=== PATIENT | female | born 2000 | race Caucasian/White ===

== ENCOUNTER 2022-06-03 15:20 | Outpatient (REF) | payer OTHER, SELFPAY ==
[2022-06-03 15:45] LABS: MANUAL DIFF FLAG NO
[2022-06-03 16:15] LABS: Basophils Absolute Auto 0.1 X10*3/uL (0.0-0.2); Basophils Percent Auto 0.8 % (0-2); Eosinophils Absolute Auto 0.3 X10*3/uL (0.0-0.4); Eosinophils Percent Auto 3.4 % (0-4); Hematocrit 38.5 % (37.0-47.0); Hemoglobin 13.8 g/dl (12.0-16.0); Imm Gran Abs Auto 0.02 X10*3/uL (0.00-0.03); Imm Gran Pct Auto 0.2 % (0.0-0.4); Lymphocytes Percent Auto 22.7 % (20-40); Mean Corpuscular HGB Conc 35.8 g/dl (31.0-35.0); Mean Corpuscular Hemoglobin 29.9 pg (27.0-33.0); Mean Corpuscular Volume 83.3 fL (80.0-98.0); Mean Platelet Volume 9.4 fL (9.4-12.3); Monocytes Percent Auto 11.6 % (2-11); Neutrophils Absolute Auto 5.3 x10*3/uL (2.0-8.3); Neutrophils Percent Auto 61.3 % (45-73); Platelet Count 390 X10*3/uL (160-400); Red Blood Count 4.62 X10*6/uL (4.20-5.50); Red Cell Distribution Width 12.2 % (11.0-16.0); White Blood Count 8.6 X10*3/uL (4.8-10.8)
[2022-06-03 16:53] LABS: Alanine Aminotransferase 19 U/L (0-31); Albumin Level 4.5 g/dL (3.5-5.0); Alkaline Phosphatase 74 U/L (39-117); Anion Gap 16 (12-20); Aspartate Amino Transferase 23 U/L (5-31); Bilirubin Total 0.5 mg/dL (0.0-1.0); Blood Urea Nitrogen 11 mg/dL (9-16); Calcium 9.5 mg/dL (8.4-10.2); Carbon Dioxide 24 mmol/L (22-29); Chloride 105 mmol/L (96-108); Estimated Glomerular Filt Rate > 60; Glucose Random 84 mg/dL (60-115); Potassium 4.6 mmol/L (3.3-5.1); Sodium 140 mmol/L (135-145); Total Protein 7.6 g/dL (6.5-8.0)
[2022-06-03 17:06] LABS: TSH reflex Free T4 1.29 uIU/mL (0.32-4.0); Vitamin D 25-OH Total 20.2 ng/mL (>30)
[2022-06-03 17:16] LABS: Folate 11.7 ng/mL (> or = 4.0); Vitamin B12 1049 pg/mL (200-900)
== END 2022-06-03 15:21 | disposition home or self-care (01) ==
LOC: HO.LAB 15:20
PROVIDERS: PCP Nurse Practitioner Family; Visit Provider Nurse Practitioner Family
DX: Z00.00 Encounter for general adult medical examination without abnormal findings (principal)
CPT/HCPCS: 36415; 80053; 82306; 82607; 82746; 84443; 85025

== ENCOUNTER 2022-07-17 15:54 | Outpatient (REF) | payer OTHER, SELFPAY ==
--- NOTE | 2022-07-17 17:46 | PFT_ITS ---
Forced vital capacity 66%, FEV1 47%, FEV1/FVC ratio is 60. [id number] is 18 and MVV 58%. Post bronchodilator therapy, there is a significant improvement in all the flow volumes. Total lung capacity 78%. Residual volume is 98%. Diffusion capacity 74%. CONCLUSION: 1. Mild restrictive pulmonary disorder. 2. Severe obstructive airway disorder with very significant response to bronchodilator therapy. These findings are suggestive of asthma/COPD overlap syndrome. Clinical correlation is recommended. MD DERICK Delaney/MODL / [id number]
== END 2022-07-17 15:55 | disposition home or self-care (01) ==
LOC: HO.RESP 15:54
PROVIDERS: PCP Nurse Practitioner Family; Visit Provider Nurse Practitioner Family
DX: J45.909 Unspecified asthma, uncomplicated (principal)
CPT/HCPCS: 94060; 94727; 94729

== ENCOUNTER → 2022-12-30 14:51 | Outpatient (REF) | payer OTHER, SELFPAY | LOC: HO.SL 14:51 | PROVIDERS: PCP Nurse Practitioner Family; Visit Provider Nurse Practitioner Family | DX: R06.83 Snoring (principal) | CPT/HCPCS: 95806 ==

== ENCOUNTER 2023-02-23 15:05 | Outpatient (REF) | payer OTHER, SELFPAY ==
[2023-02-23 16:02] LABS: MANUAL DIFF FLAG NO
[2023-02-23 17:56] LABS: Basophils Percent Auto 0.5 % (0-2); Eosinophils Absolute Auto 0.2 X10*3/uL (0.0-0.4); Hemoglobin 13.4 g/dl (12.0-16.0); Imm Gran Abs Auto 0.03 X10*3/uL (0.00-0.03); Imm Gran Pct Auto 0.4 % (0.0-0.4); Lymphocytes Absolute Auto 1.9 X10*3/uL (1.2-4.9); Lymphocytes Percent Auto 23.9 % (20-40); Mean Corpuscular HGB Conc 33.5 g/dl (31.0-35.0); Mean Corpuscular Hemoglobin 27.9 pg (27.0-33.0); Mean Corpuscular Volume 83.2 fL (80.0-98.0); Mean Platelet Volume 9.6 fL (9.4-12.3); Monocytes Absolute Auto 0.8 X10*3/uL (0.1-1.2); Monocytes Percent Auto 10.2 % (2-11); Platelet Count 403 X10*3/uL (160-400); Red Blood Count 4.81 X10*6/uL (4.20-5.50); Red Cell Distribution Width 11.9 % (11.0-16.0); White Blood Count 8.1 X10*3/uL (4.8-10.8)
[2023-02-26 12:03] LABS: Immunoglobulin E 129 kU/L (<OR=114)
== END 2023-02-23 15:06 | disposition home or self-care (01) ==
LOC: HO.LAB 15:05
PROVIDERS: PCP Nurse Practitioner Family; Visit Provider Hospitalist
DX: G47.33 Obstructive sleep apnea (adult) (pediatric) (principal); G47.34 Idiopathic sleep related nonobstructive alveolar hypoventilation; J45.909 Unspecified asthma, uncomplicated
CPT/HCPCS: 36415; 82785; 85025; 86003; 99202

== ENCOUNTER 2023-02-23 15:05 | Outpatient (AMB) | payer OTHER, SELFPAY ==
[2023-02-23 15:16] VITALS: BP 102/70; PULSE 86; O2SAT 98; BMI 35.2
--- NOTE | 2023-02-23 15:16 | MHC.OFFVIS ---
Intake Vital Signs 02/23/23 15:16 Height 5 ft 10 in Weight 245 lb BMI 35.2 BP 102/70 Blood Pressure Location Lt brachial Position Standing Pulse 86 Pulse Source Pulse Oximeter Pulse Oximetry (%) 98 Oxygen Delivery Method Room Air Intake Visit Reasons: asthma Intake Note: pt is here for asthma and general breathing issues. She also stated she had a home sleep study, which she states pcp not really believes the results, she had covid x2, started 2020 woke up unable to breath, 2021, and flu 2021. and than covid 09/2022. 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 The patient is a 22 year woman with a known history of asthma and allergic rhinitis who has been having worsening respiratory symptoms after having COVID. She is having to use her maintenance inhaler which is Advair HFA twice a day in addition to that does take her rescue inhaler between 2 to 4 times a day. The patient complains of chest tightness and wheezing. Moderate severity. She did undergo pulmonary function studies sometime in July 2022 which demonstrated a moderate fixed obstruction suggesting uncontrolled asthma. The patient also had a decrease in her total lung capacity. Clinically the patient is feeling better from that time. Although she is still not at her baseline. She also states that she has had allergy testing back many years ago and she was allergic to everything. Will go ahead and recheck her allergies at this time. In addition to this the patient continues to have significant daytime drowsiness. There is family history of sleep apnea. She does have documented apneic episodes and snoring. Her [place] score is elevated 12/24. The patient did undergo home sleep study. Will demonstrated that she was tachycardic up to 140 beats per minute and also she was hypoxic below 88% for about 14 minutes. The patient however had a hard time with this study and could not get herself to sleep and therefore her apnea score she just mild. Therefore, the patient does have evidence of significant sleep apnea and significant nocturnal hypoxia. I will request an in-lab study in order to accurately measure her sleep apnea in order for her to start PAP therapy. [facility] Medical History (Updated 02/23/23 @ 15:46 by Efra Eddy MD) Chronic allergic rhinitis Exercise-induced asthma Nocturnal hypoxia BRUNO (obstructive sleep apnea) Surgical History No pertinent past surgical history Family History Mother Splenic artery aneurysm Father No problems noted. 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 Cognitive needs: No Hearing needs: No Vision needs: No Review of Systems Const Reports daytime sleepiness, Reports difficulty sleeping, Denies fever(s), Reports snoring and Reports stops breathing during sleep Eyes Denies change in vision ENT Reports nasal congestion and Reports nasal discharge Card Denies chest pain and Reports dyspnea on exertion Resp Reports cough, Reports dyspnea on exertion, Reports snoring and Reports wheezing GI Reports no additional complaints Musc Denies myalgias Skin/Breast Denies rash Endo Denies flushing Jr/Lymph Denies lymphadenopathy Aller/Immun Reports wheezing Physical Exam Vital Signs: Last Vital Signs Pulse 86 02/23/23 15:16 BP 102/70 02/23/23 15:16 Pulse Ox 98 02/23/23 15:16 Oxygen Delivery Method Room Air 02/23/23 15:16 BMI result Body Mass Index 35.2 Const General: comfortable HEENT Head: Yes atraumatic Eyes General: appearance normal, both eyes and all related structures Neck Neck: Yes supple Chest Chest palpation & inspection: normal inspection of the chest Resp Effort & Inspection: normal respiratory effort Auscultation: no wheezes and diminished lung sounds Cardio Rate: regular rate Rhythm: regular rhythm Heart sounds: S1 normal heart sound present and S2 normal heart sound present GI Palpation (GI): Soft to palpation Skin General skin exam: no rashes or lesions noted Extrem General: Yes no clubbing, cyanosis or edema Assessment & Plan Assessment & Plan (1) BRUNO (obstructive sleep apnea): Code(s): G47.33 - Obstructive sleep apnea (adult) (pediatric) (2) Nocturnal hypoxia: Code(s): G47.34 - Idiopathic sleep related nonobstructive alveolar hypoventilation (3) Chronic allergic rhinitis: Code(s): J30.9 - Allergic rhinitis, unspecified (4) Asthma: Code(s): J45.909 - Unspecified asthma, uncomplicated Plan continue Advair HFA JEFF as needed Add Spiriva daily in lab PSG ECHO Bloodwork/Allergy testing Orders: Orders RT PSG in-lab sleep study 02/23/23 G47.33 - Obstructive sleep apnea (adult) (pediatric), G47.34 - Idiopathic sleep related nonobstructive alveolar hypoventilation CA echo transthoracic complete 02/23/23 I27.20 - Pulmonary hypertension, unspecified Rast Allergen 02/23/23 J30.9 - Allergic rhinitis, unspecified Complete Blood Count Auto Diff 02/23/23 J30.9 - Allergic rhinitis, unspecified Immunoglobulin E 02/23/23 J30.9 - Allergic rhinitis, unspecified Medications: New tiotropium bromide 2.5 mcg/actuation (Spiriva Respimat) 2 puffs inhalation DAILY 30 days 1 ea 11RF Coding Level of Care Code New Pt Level 4 (06861) Diagnoses BRUNO (obstructive sleep apnea) G47.33 Nocturnal hypoxia G47.34 Chronic allergic rhinitis J30.9 Asthma J45.909 Time Spent (min) 39
== END 2023-02-23 15:46 | disposition home or self-care (01) ==
PROVIDERS: PCP Nurse Practitioner Family; Visit Provider Hospitalist
DX: G47.33 Obstructive sleep apnea (adult) (pediatric) (principal); G47.34 Idiopathic sleep related nonobstructive alveolar hypoventilation; J45.909 Unspecified asthma, uncomplicated
CPT/HCPCS: 99204

== ENCOUNTER → 2023-03-20 19:30 | Outpatient (REF) | payer OTHER, SELFPAY | LOC: HO.SL 19:30 | PROVIDERS: PCP Nurse Practitioner Family; Visit Provider Hospitalist | DX: G47.33 Obstructive sleep apnea (adult) (pediatric) (principal); G47.34 Idiopathic sleep related nonobstructive alveolar hypoventilation | CPT/HCPCS: 95810 ==

== ENCOUNTER → 2023-03-20 22:21 | Outpatient (BNV) | payer OTHER, SELFPAY | PROVIDERS: PCP Nurse Practitioner Family; Visit Provider Internal Medicine | DX: G47.33 Obstructive sleep apnea (adult) (pediatric) (principal) | CPT/HCPCS: 95810 ==

== ENCOUNTER → 2023-03-26 13:51 | Outpatient (REF) | payer OTHER, SELFPAY ==
--- NOTE | 2023-03-26 13:54 | CA_ITS ---
Transthoracic Echocardiogram Patient (Last, First, Middle): Jaimie Modi, Gender: Female Date of : 2000 Age: 22 Procedure Date: 03/26/2023 Procedure Type: Transthoracic Echocardiogram Location: OP Height: 177.8 cm Weight: 113.4 kg BSA: 2.29 m2 Heart Rate: 75 bpm BP: 100 / 80 mmHg Processor Helper: GAY Referring MD: Efra Eddy MD Research Development Manager: Gallo Christopher MD Symptoms: I27.20 - Pulmonary hypertension, unspecified Study Quality: Fair ECG Rhythm: Sinus Conclusions: - Essentially normal study Findings Left Ventricle Normal left ventricular size, thickness, and systolic function. The visually estimated ejection fraction is between 55-60%. Spectral Doppler is indicative of a normal filling pattern. Peak GLS is -20%, within normal limits. Right Ventricle Normal right ventricular cavity size and systolic function. Atria Both atria are normal in size. There is no evidence of interatrial shunt. Aortic Valve Normal aortic valve structure and function. There is no aortic valve stenosis. There is no aortic valve regurgitation. Mitral Valve Normal mitral valve structure and function. There is trace mitral valve regurgitation. There is no mitral valve stenosis. Pulmonic Valve The pulmonic valve is likely normal. There is trace pulmonic valve regurgitation. Tricuspid Valve Normal tricuspid valve structure. Tricuspid regurgitation envelope is inadequate for calculation of right ventricular systolic pressure. Normal right atrial pressure. Great Vessels All visible segments of the aorta are normal in size. The pulmonary artery was not well visualized. Venous The inferior vena cava is normal in size and collapses greater than 50% with inspiration. Pericardium/Pleural There is no evidence of pericardial effusion. Prior Study Comparison No prior study available for comparison. Measurements 2D Linear Measurements IVSd: 0.78 0.6-0.9/0.6-1.0 cm LVIDd: 4.84 3.9-5.3/4.2-5.9 cm LVIDd Index: 2.11 2.4-3.2/2.2-3.1 cm/m2 LVIDs: 3.07 2.0-3.6 cm LVPWd: 0.92 0.7-1.1 cm LA Diam: 3.40 2.7-3.8/3.0-4.0 cm LAIDs Index: 1.48 1.5-2.3 cm/m2 LV Mass: 173.13 67-162/88-224 g LV Mass Index: 75.60 43-95/49-115 g/m2 LVOT Diam: 2.20 3.0+(-)1.3 cm 2D Systolic Function EF 4C: 52.70 >55% EF 2C: 63.80 >55% EF BiP: 59.20 >55% Mitral Valve MV Pk E: 0.69 MV PK A: 0.59 MV Decel Time: 134.00 E/A: 1.20 E'Lateral: 15.40 E'Medial: 8.16 E/E' Med: 8.50 E/E' Lat: 4.50 PHT: 39.00 MVA PHT: 5.64 Decel [place]: 5.19 Aortic Valve AoV Pk Ayad: 1.01 AoV Mn Ayad: 0.73 AoV VTI: 0.21 AoV Pk Grad: 4.00 Aov Mn Grad: 2.00 LANA Cont.VTI: 3.51 LVOT LVOT Pk Ayad: 0.95 LVOT Mn Ayad: 0.65 LVOT VTI: 0.19 LVOT Pk Grad: 4.00 LVOT Mn Grad: 2.00 LVOT Diam: 2.20 LVOT Area: 3.80 Diastolic Function MV Pk E: 0.69 MV Pk A: 0.59 E/A: 1.20 E'Medial: 8.16 E/E' Med: 8.50 E' Laterial: 15.40 E/E' Lat: 4.50 Right Ventricle TAPSE (mm): 21.20 TVS' Ayad: 12.20 Tricuspid Valve RA Press: 3.00 Great Vessels Aorta Sinus of Valsalva: 3.30 2.0-3.5 cm Ao Asc: 3.00 2.1-3.4 cm Pulmonary Valve PV Pk Ayad: 0.80 Peak PV Grad: 3.00 Updated in Other Vendor System with Status of Final Gallo Christopher MD electronically signed on 03/26/2023 3:41:37 PM with status of Final
== END ==
LOC: HO.CARD 13:51
PROVIDERS: PCP Nurse Practitioner Family; Visit Provider Hospitalist
DX: I27.20 Pulmonary hypertension, unspecified (principal)
CPT/HCPCS: 93306; 93356

== ENCOUNTER → 2023-03-26 13:54 | Outpatient (BNV) | payer OTHER, SELFPAY | PROVIDERS: PCP Nurse Practitioner Family; Visit Provider Internal Medicine Cardiovascular Disease | DX: I27.20 Pulmonary hypertension, unspecified (principal) | CPT/HCPCS: 93306 ==

== ENCOUNTER 2023-05-12 15:43 | Outpatient (AMB) | payer OTHER, SELFPAY ==
[2023-05-12 15:55] VITALS: PULSE 86; O2SAT 98; BMI 35.1
--- NOTE | 2023-05-12 15:55 | A.OFFVIS_ITS ---
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 She is having to use her maintenance inhaler which is Advair HFA twice a day in addition to that does take her rescue inhaler between 2 to 4 times a day. The patient complains of chest tightness and wheezing. Moderate severity. She did undergo pulmonary function studies sometime in July 2022 which demonstrated a moderate fixed obstruction suggesting uncontrolled asthma. The patient also had a decrease in her total lung capacity. Clinically the patient is feeling better from that time. Although she is still not at her baseline. She also states that she has had allergy testing back many years ago and she was allergic to everything. Will go ahead and recheck her allergies at this time. In addition to this the patient continues to have significant daytime drowsiness. There is family history of sleep apnea. She does have documented apneic episodes and snoring. Her [place] score is elevated 12/24. The patient did undergo home sleep study. Will demonstrated that she was tachycardic up to 140 beats per minute and also she was hypoxic below 88% for about 14 minutes. The patient however had a hard time with this study and could not get herself to sleep and therefore her apnea score she just mild. Therefore, the patient does have evidence of significant sleep apnea and significant nocturnal hypoxia. I will request an in-lab study in order to accurately measure her sleep apnea in order for her to start PAP therapy. 05/12/2023 the patient is here for a pulmonary follow-up visit. She continues to have daytime drowsiness. Her [place] score is still elevated to over 24. we did review her in-lab sleep study. The patient does have [id number] sleep apnea. the patient really benefit from starting CPAP therapy. The patient is agreeable to this. Will go ahead and send a prescription to the local [employer] company. We did review her echocardiogram. No evidence of any pulmonary hypertension. This is reassuring. Still, will be very important for start CPAP therapy to minimize the risk of the development of pulmonary hypertension in the future. The patient also doing better on the Spiriva. Her asthma seems to be better controlled on this regimen. The patient did have allergy testing. Her IgE was elevated and she has severe allergies to cats birch trees oak trees and also has some allergies to dust mites. We did talk about considering allergy shots. Otherwise if her symptoms worsen a maximum respiratory therapy she can also consider biologics such as Xolair. Will have her start CPAP and have her follow-up in the next 2-3 months. [facility] Medical History (Updated 05/12/23 @ 16:00 by Efra Eddy MD) Chronic allergic rhinitis Nocturnal hypoxia BRUNO (obstructive sleep apnea) Exercise-induced asthma Surgical History No pertinent past surgical history Family History Mother Splenic artery aneurysm Father No problems noted. 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 Cognitive needs: No Hearing needs: No Vision needs: No Review of Systems Const Reports daytime sleepiness, Reports difficulty sleeping, Denies fever(s), Reports snoring and Reports stops breathing during sleep Eyes Denies change in vision ENT Reports nasal congestion and Reports nasal discharge Card Denies chest pain and Reports dyspnea on exertion Resp Reports cough, Reports dyspnea on exertion, Reports snoring and Denies wheezing GI Reports no additional complaints Musc Denies myalgias Skin/Breast Denies rash Endo Denies flushing Jr/Lymph Denies lymphadenopathy Aller/Immun Denies wheezing Physical Exam Vital Signs: Last Vital Signs Pulse 86 05/12/23 15:55 Pulse Ox 98 05/12/23 15:55 Oxygen Delivery Method Room Air 05/12/23 15:55 BMI result Body Mass Index 35.1 Const General: comfortable HEENT Head: Yes atraumatic Eyes General: appearance normal, both eyes and all related structures Neck Neck: Yes supple Chest Chest palpation & inspection: normal inspection of the chest Resp Effort & Inspection: normal respiratory effort Auscultation: no wheezes and diminished lung sounds Cardio Rate: regular rate Rhythm: regular rhythm Heart sounds: S1 normal heart sound present and S2 normal heart sound present GI Palpation (GI): Soft to palpation Skin General skin exam: no rashes or lesions noted Extrem General: Yes no clubbing, cyanosis or edema Assessment & Plan Assessment & Plan (1) BRUNO (obstructive sleep apnea): Code(s): G47.33 - Obstructive sleep apnea (adult) (pediatric) (2) Nocturnal hypoxia: Code(s): G47.34 - Idiopathic sleep related nonobstructive alveolar hypoventilation (3) Chronic allergic rhinitis: Code(s): J30.9 - Allergic rhinitis, unspecified (4) Asthma: Code(s): J45.909 - Unspecified asthma, uncomplicated Qualifiers: Asthma complication type: uncomplicated Asthma persistence: persistent Asthma severity: moderate Qualified Code(s): J45.40 - Moderate persistent asthma, uncomplicated Plan continue Advair HFA JEFF as needed continue Spiriva daily start APAP consider Xolair if symptoms worsen consider allergy shots F/U 3 months Coding Level of Care Code Est Pt Level 4 (94189) Diagnoses BRUNO (obstructive sleep apnea) G47.33 Nocturnal hypoxia G47.34 Chronic allergic rhinitis J30.9 Moderate persistent asthma without complication J45.40 Asthma complication type: uncomplicated Asthma persistence: persistent Asthma severity: moderate Time Spent (min) 18
== END 2023-05-12 16:13 | disposition home or self-care (01) ==
PROVIDERS: PCP Nurse Practitioner Family; Visit Provider Hospitalist
DX: G47.33 Obstructive sleep apnea (adult) (pediatric) (principal); G47.34 Idiopathic sleep related nonobstructive alveolar hypoventilation; J30.9 Allergic rhinitis, unspecified; J45.40 Moderate persistent asthma, uncomplicated
CPT/HCPCS: 99214

== ENCOUNTER → 2023-05-12 15:43 | Outpatient (BNVA) | payer OTHER, SELFPAY | PROVIDERS: PCP Nurse Practitioner Family; Visit Provider Hospitalist | DX: G47.34 Idiopathic sleep related nonobstructive alveolar hypoventilation (principal); G47.33 Obstructive sleep apnea (adult) (pediatric); J45.40 Moderate persistent asthma, uncomplicated; J30.9 Allergic rhinitis, unspecified; Z79.899 Other long term (current) drug therapy | CPT/HCPCS: 99212 ==

== ENCOUNTER 2023-06-05 13:50 | Outpatient (AMB) | payer OTHER, SELFPAY ==
[2023-06-05 13:53] VITALS: BP 112/80; PULSE 78; O2SAT 99; BMI 34.3
--- NOTE | 2023-06-05 13:53 | A.OFFPC_ITS ---
Vital Signs 06/05/23 13:53 Height 5 ft 10 in Weight 239 lb BMI 34.3 BP 112/80 Blood Pressure Location Lt brachial Position Sitting Pulse 78 Pulse Source Pulse Oximeter Pulse Oximetry (%) 99 Oxygen Delivery Method Room Air Intake Visit Reasons: Annual Exam Intake Note: Patient is here today for a physical. 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 Allergies No Known Allergies Allergy (Verified 06/05/23 14:11) Medication List - Last Reconciled 06/05/23 by [place] [facility] albuterol sulfate 90 mcg/actuation (Ventolin HFA) 2 puffs inhalation Q4-6H PRN albuterol sulfate 2.5 mg (3 mL) inhalation Q4-6H PRN cetirizine (Zyrtec) 10 mg PO DAILY PRN cholecalciferol (vitamin D3) 25 mcg PO DAILY fluoxetine 40 mg PO DAILY fluticasone propion-salmeterol 115-21 mcg/actuation (Advair HFA) 2 puffs inhalation Q12H miscellaneous medical supply 1 ea miscellaneous DAILY montelukast 10 mg PO BEDTIME tiotropium bromide 2.5 mcg/actuation (Spiriva Respimat) 2 puffs inhalation DAILY 30 days Tobacco use date assessed: 06/05/23 Dental Screening Dental Screen Date: 06/05/23 Did you have a dental visit in the last 12 months?: Yes Did you have a dental problem in the last 6 months where you did not have access to dental care?: No Was dental information given to patient?: Patient has dentist HPI Annual Exam HPI Details Patient is a 22-year-old female who presents today for physical exam. Medical history significant for seasonal allergies, asthma-followed by [facility], depression, obesity, low vitamin-D level, anxiety, BRUNO-on CPAP- reports possibly has to much pressure from CPAP machine-will follow-up with pulmonology in regards to this. Patient has an upcoming appointment with [facility] for woman's exam and Pap smear 08/2023. Tetanus vaccine up-to-date. Dental exam up-to-date. Does not see eye doctor, no issues with eyes. No shortness of breath or chest pain. [facility] Medical History COVID-19 Chronic allergic rhinitis Nocturnal hypoxia BRUNO (obstructive sleep apnea) Exercise-induced asthma Surgical History No pertinent past surgical history Family History Mother Splenic artery aneurysm Father No problems noted. 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 Cognitive needs: No Hearing needs: No Vision needs: No Questionnaire PHQ-9 Over the last 2 weeks, how often have you been bothered by any of the following problems? 1. Little interest or pleasure in doing things: not at all 2. Feeling down, depressed, or hopeless: not at all 3. Trouble falling or staying asleep, or sleeping too much: not at all 4. Feeling tired or having little energy: not at all 5. Poor appetite or overeating: not at all 6. Feeling bad about yourself - or that you are a failure or have let yourself or your family down: not at all 7. Trouble concentrating on things, such as reading the newspaper or watching television: not at all 8. Moving or speaking so slowly that other people could have noticed. Or the opposite - being so fidgety or restless that you have been moving around a lot more than usual: not at all 9. Thoughts that you would be better off or of hurting yourself in some way: not at all Total score: 0 Depression Screening Interpretation: Negative Depression Screening Done: Yes 81232 - PHQ-9 Billing: Yes Source: Developed by Drs. Bernardo Charles, Yadi Sotelo, Chuck Vasquez and colleagues, with an educational brian from [employer]. Thrive Questionnaire Date Thrive assessed: 09/05/22 I am a: Patient What is your living situation today?: I have a steady place to live Within the past 12 months, did the food you bought not last and you didn't have the money to get more?: Never true Within the past 12 months, did you worry whether your food would run out before you got money to buy more?: Never true Do you have trouble paying for medicines?: No Do you have trouble getting transportation to medical appointments?: No Do you have trouble paying your heating and electricity bill?: No Do you have trouble taking care of your child, family member or friend?: No Do you have trouble with day-to-day activities such as bathing, preparing meals, shopping, managing finances, etc.?: No Are you currently unemployed and looking for a job?: No Are you interested in more education?: No Currently or been in a relationship where the following occur: no concerns reported AUDIT C Alcohol Use Questionnaire (AUDIT-C) 1. How often do you have a drink containing alcohol?: Never 2. How many drinks containing alcohol do you have on a typical day when you are drinking?: 1 or 2 (0) 3. How often do you have six or more drinks on one occasion?: Never Total Score: 0 Score Reviewed/Action Taken: No PAUILNO-7 AMB Questionnaire PAULINO-7 Date PAULINO - 7 assessed: 06/05/23 Feeling nervous, anxious, or on edge: 0 = Not at all Not being able to stop or control worryin = Not at all Worrying too much about different things: 0 = Not at all Trouble relaxin = Not at all Being so restless that it is hard to sit still: 0 = Not at all Becoming easily annoyed or irritable: 0 = Not at all Feeling afraid as if something awful might happen: 0 = Not at all Total PAULINO-7 score (0-4 normal; 5-9 mild; 10-14 moderate; 15-21 severe): 0 Source: Developed by Drs. Bernardo Charles, Yadi Sotelo, Chuck Vasquez and colleagues, with an educational brian from [employer]. PAULINO-7 Assessment Billing PAULINO-7 Assessment Tool: PAULINO-7 Assessment 98246 Review of Systems Const Denies body aches, Denies chills, Denies fever(s) and Denies headache(s) Eyes Denies change in vision ENT Denies dizziness, Denies otalgia, Denies headache(s), Denies sinus pain and Denies sore throat Card Denies chest pain, Denies lightheadedness and Denies dyspnea Resp Denies dyspnea and Denies wheezing GI Denies abdominal pain, Denies constipation, Denies diarrhea, Denies nausea and Denies vomiting Denies dysuria Musc Denies myalgias Skin/Breast Denies rash Neuro Denies dizziness and Denies headache(s) Aller/Immun Denies wheezing Physical exam (Primary Care) Vital Signs: Last Vital Signs Pulse 78 06/05/23 13:53 BP 112/80 06/05/23 13:53 Pulse Ox 99 06/05/23 13:53 Oxygen Delivery Method Room Air 06/05/23 13:53 BMI result Body Mass Index 34.3 Tobacco/Smoking Status: Tobacco use Status Tobacco use date assessed 06/05/23 06/05/23 14:05 Patient Tobacco Use Status Never used Tobacco 06/05/23 14:05 PHQ-9: PHQ-9 Score PHQ-9: Total score 0 06/05/23 14:05 Depression Screening Interpretation: Negative Thrive Assessment: Date of Thrive Assessment Date Thrive assessed 09/05/22 06/05/23 14:05 Currently or been in a relationship where the following occur: no concerns reported Const General: cooperative and no acute distress Orientation/consciousness: patient oriented x3 HENMT Head: Yes normocephalic and Yes atraumatic Ears: TM's normal bilaterally Face and sinus: Yes sinuses nontender Mouth: oropharynx normal and moist mucous membranes Throat: Yes posterior oropharynx normal Eyes General: appearance normal, both eyes and all related structures Pupils: Equal, round and reactive pupils present EOM: EOMs intact bilaterally Neck Neck: Yes normal visual inspection, Yes full ROM and Yes no lymphadenopathy Thyroid: Thyroid normal Resp Effort & Inspection: normal respiratory effort and able to speak in complete sentences Auscultation: clear to auscultation bilaterally, no crackles, no rales, no rhonchi and no wheezes Cardio Rate: regular rate Rhythm: regular rhythm Heart sounds: S1 normal heart sound present, S2 normal heart sound present and no murmurs GI Palpation (GI): Soft to palpation, not firm, nontender, no guarding, not rigid and no hepatosplenomegaly Auscultation: normal bowel sounds General: No CVA tenderness Back/Spine/Pelvis Back: No CVA tenderness Skin General skin exam: no rashes or lesions noted Neuro General: patient oriented x3 Cranial nerves: Yes Equal, round and reactive pupils present Gait exam (Neuro): Normal gait present Extrem General: Yes full ROM and No edema Assessment and Plan Assessment & Plan (1) Asthma: Code(s): J45.909 - Unspecified asthma, uncomplicated Qualifiers: Asthma severity: moderate Asthma persistence: persistent Asthma complication type: uncomplicated Qualified Code(s): J45.40 - Moderate per sistent asthma, uncomplicated Plan: Continue current treatment Continue to follow-up with [facility] (2) Seasonal allergies: Code(s): J30.2 - Other seasonal allergic rhinitis Plan: Continue Zyrtec 10 mg daily p.r.n. and montelukast (3) Anxiety: Code(s): F41.9 - Anxiety disorder, unspecified Plan: Continue fluoxetine (4) Obesity (BMI 30.0-34.9): Code(s): E66.9 - Obesity, unspecified Plan: Healthy food choices and exercise as tolerated (5) Depression: Code(s): F32.A - Depression, unspecified Qualifiers: Depression Type: other depression Qualified Code(s): F32.89 - Other specified depressive episodes Plan: Continue fluoxetine 40 mg daily (6) BRUNO (obstructive sleep apnea): Code(s): G47.33 - Obstructive sleep apnea (adult) (pediatric) Plan: On CPAP Continue to follow-up with [facility] (7) Low vitamin D level: Code(s): R79.89 - Other specified abnormal findings of blood chemistry Plan: Will check vitamin-D level (8) Adult general medical exam: Comment: Covid-19 IZ's Pfizer x 3. Tdap UTD. Code(s): Z00.00 - Encounter for general adult medical examination without abnormal findings Plan: Repeat in 1 year Blood work ordered Orders: Orders Vitamin B12 and Folate Today Z00.00 - Encounter for general adult medical examination without abnormal findings Comprehensive Met. Panel Today Z00.00 - Encounter for general adult medical examination without abnormal findings Vitamin D 25-OH Total Today R79.89 - Other specified abnormal findings of blood chemistry TSH reflex Free T4 Today Z00.00 - Encounter for general adult medical examination without abnormal findings Medications: Refilled fluoxetine 40 mg PO DAILY 30 caps 2RF F32.A - Depression, unspecified Coding Level of Care Code Est Pt Prev Care 18-39y(61626) Diagnoses Moderate persistent asthma without complication J45.40 Asthma severity: moderate Asthma persistence: persistent Asthma complication type: uncomplicated Seasonal allergies J30.2 Anxiety F41.9 Obesity (BMI 30.0-34.9) E66.9 Other depression F32.89 Depression Type: other depression BRUNO (obstructive sleep apnea) G47.33 Low vitamin D level R79.89 Adult general medical exam Z00.00 Additional Codes PAULINO-7 Assessment Billing - PAULINO-7 Assessment Tool: PAULINO-7 Assessment [id number] ([id number])
== END 2023-06-05 14:24 | disposition home or self-care (01) ==
PROVIDERS: Visit Provider Nurse Practitioner Family
DX: Z00.00 Encounter for general adult medical examination without abnormal findings (principal); J45.40 Moderate persistent asthma, uncomplicated; G47.33 Obstructive sleep apnea (adult) (pediatric); E55.9 Vitamin D deficiency, unspecified
CPT/HCPCS: 99395

== ENCOUNTER 2023-06-05 14:28 | Outpatient (REF) | payer OTHER, SELFPAY ==
[2023-06-05 16:18] LABS: Alanine Aminotransferase 12 U/L (0-31); Albumin Level 4.4 g/dL (3.5-5.0); Alkaline Phosphatase 65 U/L (39-117); Anion Gap 12 (12-20); Aspartate Amino Transferase 19 U/L (5-31); Bilirubin Total 0.5 mg/dL (0.0-1.0); Blood Urea Nitrogen 11 mg/dL (9-16); Calcium 10.3 mg/dL (8.4-10.2); Carbon Dioxide 22 mmol/L (22-29); Chloride 107 mmol/L (96-108); Estimated Glomerular Filt Rate > 60; Glucose Random 90 mg/dL (60-115); Potassium 4.2 mmol/L (3.3-5.1); Sodium 137 mmol/L (135-145); Total Protein 7.8 g/dL (6.5-8.0)
[2023-06-05 16:28] LABS: TSH reflex Free T4 1.59 uIU/mL (0.32-4.0); Vitamin D 25-OH Total 43.9 ng/mL (>30)
[2023-06-05 16:34] LABS: Folate 14.5 ng/mL (> or = 4.0); Vitamin B12 620 pg/mL (200-900)
== END 2023-06-05 14:29 | disposition home or self-care (01) ==
LOC: HO.LAB 14:28
PROVIDERS: PCP Nurse Practitioner Family; Visit Provider Nurse Practitioner Family
DX: Z00.00 Encounter for general adult medical examination without abnormal findings (principal); R79.89 Other specified abnormal findings of blood chemistry
CPT/HCPCS: 36415; 80053; 82306; 82607; 82746; 84443

== ENCOUNTER 2023-07-21 15:16 | Outpatient (AMB) | payer OTHER, SELFPAY ==
[2023-07-21 15:31] VITALS: PULSE 88; O2SAT 98; BMI 33.7
--- NOTE | 2023-07-21 15:31 | A.OFFVIS_ITS ---
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 She is having to use her maintenance inhaler which is Advair HFA twice a day in addition to that does take her rescue inhaler between 2 to 4 times a day. The patient complains of chest tightness and wheezing. Moderate severity. She did undergo pulmonary function studies sometime in July 2022 which demonstrated a moderate fixed obstruction suggesting uncontrolled asthma. The patient also had a decrease in her total lung capacity. Clinically the patient is feeling better from that time. Although she is still not at her baseline. She also states that she has had allergy testing back many years ago and she was allergic to everything. Will go ahead and recheck her allergies at this time. In addition to this the patient continues to have significant daytime drowsiness. There is family history of sleep apnea. She does have documented apneic episodes and snoring. Her Ida score is elevated 08/02. The patient did undergo home sleep study. Will demonstrated that she was tachycardic up to 140 beats per minute and also she was hypoxic below 88% for about 14 minutes. The patient however had a hard time with this study and could not get herself to sleep and therefore her apnea score she just mild. Therefore, the patient does have evidence of significant sleep apnea and significant nocturnal hypoxia. I will request an in-lab study in order to accurately measure her sleep apnea in order for her to start PAP therapy. 05/12/2023 the patient is here for a pulmonary follow-up visit. She continues to have daytime drowsiness. Her Ida score is still elevated to over 24. we did review her in-lab sleep study. The patient does have [id number] sleep apnea. the patient really benefit from starting CPAP therapy. The patient is agreeable to this. Will go ahead and send a prescription to the local [facility] company. We did review her echocardiogram. No evidence of any pulmonary hypertension. This is reassuring. Still, will be very important for start CPAP therapy to minimize the risk of the development of pulmonary hypertension in the future. The patient also doing better on the Spiriva. Her asthma seems to be better controlled on this regimen. The patient did have allergy testing. Her IgE was elevated and she has severe allergies to cats birch trees oak trees and also has some allergies to dust mites. We did talk about considering allergy shots. Otherwise if her symptoms worsen a maximum respiratory therapy she can also consider biologics such as Xolair. Will have her start CPAP and have her follow-up in the next 2-3 months. 07/21/2023 the patient is here for a pul [facility] follow-up visit. The patient overall has been doing fair. She had RSV few weeks ago and she is still recovering from it. She is still having coughing spells from it and because of that difficult time tolerating the CPAP at nighttime. Prior to that she was doing great on CPAP. And also the cough can affect her daytime activities. She has her albuterol and also her nebulizer that she uses as needed. Although she also use her maintenance therapies. She has just been sickly. When she had RSV she also took some antibiotics and some prednisone. Now she is back to her baseline therapy. However now with the cough is hard for her to tolerate the higher pressures on her CPAP. I did decrease pressures down to 14 cm. It is still those are too high she can always call and we can always hopefully decrease the pressure is further down. She continue with current respiratory therapy. I prescribed Tessalon Perles to help with her cough at this time. Respiratory aches exam is fairly normal. [facility] Medical History COVID-19 Chronic allergic rhinitis Nocturnal hypoxia BRUNO (obstructive sleep apnea) Exercise-induced asthma Surgical History No pertinent past surgical history Family History Mother Splenic artery aneurysm Father No problems noted. 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 Cognitive needs: No Hearing needs: No Vision needs: No Review of Systems Const Denies daytime sleepiness, Reports difficulty sleeping, Denies fever(s) and Denies snoring Eyes Denies change in vision ENT Reports nasal congestion and Reports nasal discharge Card Denies chest pain and Reports dyspnea on exertion Resp Reports cough, Reports dyspnea on exertion, Denies snoring and Denies wheezing GI Reports no additional complaints Musc Denies myalgias Skin/Breast Denies rash Endo Denies flushing Jr/Lymph Denies lymphadenopathy Aller/Immun Denies wheezing Physical Exam Vital Signs: Last Vital Signs Pulse 88 07/21/23 15:31 Pulse Ox 98 07/21/23 15:31 Oxygen Delivery Method Room Air 07/21/23 15:31 BMI result Body Mass Index 33.7 Const General: comfortable HEENT Head: Yes atraumatic Eyes General: appearance normal, both eyes and all related structures Neck Neck: Yes supple Chest Chest palpation & inspection: normal inspection of the chest Resp Effort & Inspection: normal respiratory effort Auscultation: no wheezes and diminished lung sounds Cardio Rate: regular rate Rhythm: regular rhythm Heart sounds: S1 normal heart sound present and S2 normal heart sound present GI Palpation (GI): Soft to palpation Skin General skin exam: no rashes or lesions noted Extrem General: Yes no clubbing, cyanosis or edema Assessment & Plan Assessment & Plan (1) BRUNO (obstructive sleep apnea): Code(s): G47.33 - Obstructive sleep apnea (adult) (pediatric) (2) Nocturnal hypoxia: Code(s): G47.34 - Idiopathic sleep related nonobstructive alveolar hypoventilation (3) Chronic allergic rhinitis: Code(s): J30.9 - Allergic rhinitis, unspecified (4) Asthma: Code(s): J45.909 - Unspecified asthma, uncomplicated Qualifiers: Asthma complication type: uncomplicated Asthma persistence: persistent Asthma severity: moderate Qualified Code(s): J45.40 - Moderate persistent asthma, uncomplicated Plan continue Advair HFA JEFF as needed continue Spiriva daily continue APAP, decrease pressures 6-16 to 6-14 start Tessalon pearls as needed for cough consider Xolair if symptoms worsen consider allergy shots F/U 6 months Medications: New benzonatate 200 mg PO BID 30 days PRN 60 caps 0RF cough Coding Level of Care Code Est Pt Level 4 (28618) Diagnoses BRUNO (obstructive sleep apnea) G47.33 Nocturnal hypoxia G47.34 Chronic allergic rhinitis J30.9 Moderate persistent asthma without complication J45.40 Asthma complication type: uncomplicated Asthma persistence: persistent Asthma severity: moderate Time Spent (min) 18
== END 2023-07-21 16:04 | disposition home or self-care (01) ==
PROVIDERS: PCP Nurse Practitioner Family; Visit Provider Hospitalist
DX: G47.33 Obstructive sleep apnea (adult) (pediatric) (principal); G47.34 Idiopathic sleep related nonobstructive alveolar hypoventilation; J30.9 Allergic rhinitis, unspecified; J45.40 Moderate persistent asthma, uncomplicated
CPT/HCPCS: 99214

== ENCOUNTER → 2023-07-21 15:16 | Outpatient (BNVA) | payer OTHER, SELFPAY | PROVIDERS: PCP Nurse Practitioner Family; Visit Provider Hospitalist | DX: G47.34 Idiopathic sleep related nonobstructive alveolar hypoventilation (principal); G47.33 Obstructive sleep apnea (adult) (pediatric); I27.20 Pulmonary hypertension, unspecified ==

== ENCOUNTER 2024-01-19 15:39 | Outpatient (AMB) | payer OTHER, SELFPAY ==
[2024-01-19 15:48] VITALS: PULSE 89; O2SAT 98; BMI 33.5
--- NOTE | 2024-01-19 15:48 | A.OFFVIS_ITS ---
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 She is having to use her maintenance inhaler which is Advair HFA twice a day in addition to that does take her rescue inhaler between 2 to 4 times a day. The patient complains of chest tightness and wheezing. Moderate severity. She did undergo pulmonary function studies sometime in July 2022 which demonstrated a moderate fixed obstruction suggesting uncontrolled asthma. The patient also had a decrease in her total lung capacity. Clinically the patient is feeling better from that time. Although she is still not at her baseline. She also states that she has had allergy testing back many years ago and she was allergic to everything. Will go ahead and recheck her allergies at this time. In addition to this the patient continues to have significant daytime drowsiness. There is family history of sleep apnea. She does have documented apneic episodes and snoring. Her [place] score is elevated 12/24. The patient did undergo home sleep study. Will demonstrated that she was tachycardic up to 140 beats per minute and also she was hypoxic below 88% for about 14 minutes. The patient however had a hard time with this study and could not get herself to sleep and therefore her apnea score she just mild. Therefore, the patient does have evidence of significant sleep apnea and significant nocturnal hypoxia. I will request an in-lab study in order to accurately measure her sleep apnea in order for her to start PAP therapy. 05/12/2023 the patient is here for a pulmonary follow-up visit. She continues to have daytime drowsiness. Her [place] score is still elevated to over 24. we did review her in-lab sleep study. The patient does have [id number] sleep apnea. the patient really benefit from starting CPAP therapy. The patient is agreeable to this. Will go ahead and send a prescription to the local [employer] [facility]. We did review her echocardiogram. No evidence of any pulmonary hypertension. This is reassuring. Still, will be very important for start CPAP therapy to minimize the risk of the development of pulmonary hypertension in the future. The patient also doing better on the Spiriva. Her asthma seems to be better controlled on this regimen. The patient did have allergy testing. Her IgE was elevated and she has severe allergies to cats birch trees oak trees and also has some allergies to dust mites. We did talk about considering allergy shots. Otherwise if her symptoms worsen a maximum respiratory therapy she can also consider biologics such as Xolair. Will have her start CPAP and have her follow-up in the next 2-3 months. 07/21/2023 the patient is here for a pulmonary follow-up visit. The patient overall has been doing fair. She had RSV few weeks ago and she is still recovering from it. She is still having coughing spells from it and because of that difficult time tolerating the CPAP at nighttime. Prior to that she was doing great on CPAP. And also the cough can affect her daytime activities. She has her albuterol and also her nebulizer that she uses as needed. Although she also use her maintenance therapies. She has just been sickly. When she had RSV she also took some antibiotics and some prednisone. Now she is back to her baseline therapy. However now with the cough is hard for her to tolerate the higher pressures on her CPAP. I did decrease pressures down to 14 cm. It is still those are too high she can always call and we can always hopefully decrease the pressure is further down. She continue with current respiratory therapy. I prescribed Tessalon Perles to help with her cough at this time. Respiratory aches exam is fairly normal. 01/19/2024 the patient is here for a pulmonary follow-up visit. Overall she is doing okay. He does bothering her. DIC in her apartment complex is not working yet and this is causing her to have difficulties with her breathing. Because of that she has not been able to use CPAP. Therefore she has minimal use for the last few weeks. She did use it over the wintertime very good in the therapy has been very affecting beneficial. Once they fixed the AC in her apartment she will be able to start using the CPAP again. She likes her mask and she has been getting supplies regularly which is reassuring. We did download the data. Her AHI is down to 1.4 when she does use the machine. Therefore we will make any changes at this time. She will continue with current supplies. She will continue with current respiratory medicines. Although she has been having more allergies. We did talk about considering Xolair as an option. The patient is agreeable this time. Will go ahead and request Xolair for the patient at this time. [facility] Medical History COVID-19 Chronic allergic rhinitis Nocturnal hypoxia BRUNO (obstructive sleep apnea) Exercise-induced asthma Surgical History No pertinent past surgical history Family History Mother Splenic artery aneurysm Father No problems noted. 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 Cognitive needs: No Hearing needs: No Vision needs: No Review of Systems Const Denies daytime sleepiness, Reports difficulty sleeping, Denies fever(s) and Denies snoring Eyes Denies change in vision ENT Reports nasal congestion and Reports nasal discharge Card Denies chest pain Resp Reports cough, Denies snoring and Reports wheezing GI Reports no additional complaints Musc Denies myalgias Skin/Breast Denies rash Endo Denies flushing Jr/Lymph Denies lymphadenopathy Aller/Immun Reports wheezing Physical Exam Vital Signs: Last Vital Signs Pulse 89 01/19/24 15:48 Pulse Ox 98 01/19/24 15:48 Oxygen Delivery Method Room Air 01/19/24 15:48 BMI result Body Mass Index 33.5 Const General: comfortable HEENT Head: Yes atraumatic Eyes General: appearance normal, both eyes and all related structures Neck Neck: Yes supple Chest Chest palpation & inspection: normal inspection of the chest Resp Effort & Inspection: normal respiratory effort Auscultation: no wheezes and diminished lung sounds Cardio Rate: regular rate Rhythm: regular rhythm Heart sounds: S1 normal heart sound present and S2 normal heart sound present GI Palpation (GI): Soft to palpation Skin General skin exam: no rashes or lesions noted Extrem General: Yes no clubbing, cyanosis or edema Assessment & Plan Assessment & Plan (1) BRUNO (obstructive sleep apnea): Code(s): G47.33 - Obstructive sleep apnea (adult) (pediatric) Category: Medical (2) Nocturnal hypoxia: Code(s): G47.34 - Idiopathic sleep related nonobstructive alveolar hypoventilation Category: Medical (3) Chronic allergic rhinitis: Code(s): J30.9 - Allergic rhinitis, unspecified Category: Medical (4) Asthma: Code(s): J45.909 - Unspecified asthma, uncomplicated Category: Medical Qualifiers: Asthma complication type: uncomplicated Asthma persistence: persistent Asthma severity: moderate Qualified Code(s): J45.40 - Moderate persistent asthma, uncomplicated Plan continue Advair HFA JEFF as needed continue Spiriva daily continue APAP, decrease pressures 6-16 to 6-14 continue Tessalon pearls as needed for cough start Xolair 300mg SC [id number] consider allergy shots F/U 6 months Medications: Refilled albuterol sulfate 90 mcg/actuation (Ventolin HFA) 2 puffs inhalation Q4-6H PRN 8.5 grams 2RF shortness of breath or wheezing J45.909 - Unspecified asthma, uncomplicated fluticasone propion-salmeterol 115-21 mcg/actuation (Advair HFA) administer with spacer 2 puffs inhalation Q12H 12 grams 2RF J45.909 - Unspecified asthma, uncomplicated tiotropium bromide 2.5 mcg/actuation (Spiriva Respimat) 2 puffs inhalation DAILY 1 ea 11RF 30 days Coding Level of Care Code Est Pt Level 4 (75102) Diagnoses BRUNO (obstructive sleep apnea) G47.33 Nocturnal hypoxia G47.34 Chronic allergic rhinitis J30.9 Moderate persistent asthma without complication J45.40 Asthma complication type: uncomplicated Asthma persistence: persistent Asthma severity: moderate Time Spent (min) 17
== END 2024-01-19 16:12 | disposition home or self-care (01) ==
PROVIDERS: PCP Nurse Practitioner Family; Visit Provider Hospitalist
DX: G47.33 Obstructive sleep apnea (adult) (pediatric) (principal); G47.34 Idiopathic sleep related nonobstructive alveolar hypoventilation; J30.9 Allergic rhinitis, unspecified; J45.40 Moderate persistent asthma, uncomplicated
CPT/HCPCS: 99214

== ENCOUNTER → 2024-01-19 15:39 | Outpatient (BNVA) | payer OTHER, SELFPAY | PROVIDERS: PCP Nurse Practitioner Family; Visit Provider Hospitalist | DX: G47.34 Idiopathic sleep related nonobstructive alveolar hypoventilation (principal); G47.33 Obstructive sleep apnea (adult) (pediatric); I27.20 Pulmonary hypertension, unspecified ==

== ENCOUNTER 2024-06-07 14:58 | Outpatient (AMB) | payer OTHER, SELFPAY ==
--- NOTE | 2024-06-07 15:14 | MHC.PC.OV ---
Vital Signs 06/07/24 15:16 Height 5 ft 10 in Weight 255 lb 4 oz BMI 36.6 BP 110/64 Blood Pressure Location Lt brachial Position Sitting Pulse 87 Pulse Source Pulse Oximeter Pulse Oximetry (%) 97 Oxygen Delivery Method Room Air Intake Visit Reasons: Annual Exam Intake Note: Patient is here today for a physical. 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 Inspector Required: No Manual Writer: Not Required per policy Accompanied by: Self / Same As Patient Allergies No Known Allergies Allergy (Verified 06/07/24 15:30) Medication List - Last Reconciled 06/07/24 by Mundo Fleming PA-C albuterol sulfate 90 mcg/actuation (Ventolin HFA) 2 puffs inhalation Q4-6H PRN albuterol sulfate 2.5 mg (3 mL) inhalation Q4-6H PRN benzonatate 200 mg PO BID PRN cetirizine (Zyrtec) 10 mg PO DAILY PRN cholecalciferol (vitamin D3) 25 mcg PO DAILY fluoxetine 40 mg PO DAILY 30 days fluticasone propion-salmeterol 115-21 mcg/actuation (Advair HFA) 2 puffs inhalation Q12H miscellaneous medical supply 1 ea miscellaneous DAILY montelukast 10 mg PO BEDTIME nebulizers As directed omalizumab 300 mg (2 mL) subcut Q4W tiotropium bromide 2.5 mcg/actuation (Spiriva Respimat) 2 puffs inhalation DAILY 30 days Tobacco use date assessed: 06/07/24 Dental Screening Dental Screen Date: 06/07/24 Did you have a dental visit in the last 12 months?: Yes Did you have a dental problem in the last 6 months where you did not have access to dental care?: No Was dental information given to patient?: Patient has dentist HPI Annual Exam HPI Details Patient is a 23-year-old female here today for an annual physical. This is the 1st time I am meeting this 23-year-old female with a past medical history significant for class 2 obesity, obstructive sleep apnea, depression and asthma. .. Asthma: Patient followed by [place] pulmonology and continues on maintenance inhaler and p.r.n. use of her albuterol inhaler with decent affect. She also does have obstructive sleep apnea to which he uses a CPAP machine on a nightly basis with good effect. Patient willing to get a pneumonia vaccine. . Depression: Patient continues on SSRI therapy with good effect on her mood. She does admit to having eating disorders as a teenager to which she has been working on. She was seeing a mental health therapist in the past and feels he is very supported by friends and family. .. 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 Vaccines: UTD With with Flu,and COVID vaccine, need PCV-20 [facility] Medical History (Updated 06/08/24 @ 07:32 by Mundo Fleming PA-C) Seasonal allergies COVID-19 Chronic allergic rhinitis Nocturnal hypoxia BRUNO (obstructive sleep apnea) Exercise-induced asthma Surgical History No pertinent past surgical history Family History Mother Splenic artery aneurysm Father No problems noted. 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 1. Little interest or pleasure in doing things: not at all 2. Feeling down, depressed, or hopeless: not at all 3. Trouble falling or staying asleep, or sleeping too much: more than half the days 4. Feeling tired or having little energy: more than half the days 5. Poor appetite or overeating: nearly every day 6. Feeling bad about yourself - or that you are a failure or have let yourself or your family down: not at all 7. Trouble concentrating on things, such as reading the newspaper or watching television: several days 8. Moving or speaking so slowly that other people could have noticed. Or the opposite - being so fidgety or restless that you have been moving around a lot more than usual: not at all 9. Thoughts that you would be better off or of hurting yourself in some way: not at all Total score: 8 Depression Screening Interpretation: Positive Depression Screening Done: Yes Source: Developed by Drs. Bernardo Charles, Yadi Sotelo, Chuck Vasquez and colleagues, with an educational brian from [employer]. Thrive Questionnaire Date Thrive assessed: 06/07/24 I am a: Patient What is your living situation today?: I have a steady place to live Within the past 12 months, did the food you bought not last and you didn't have the money to get more?: Never true Within the past 12 months, did you worry whether your food would run out before you got money to buy more?: Never true Do you have trouble paying for medicines?: No Do you have trouble getting transportation to medical appointments?: No Do you have trouble paying your heating and electricity bill?: No Do you have trouble taking care of your child, family member or friend?: No Do you have trouble with day-to-day activities such as bathing, preparing meals, shopping, managing finances, etc.?: No Are you currently unemployed and looking for a job?: No Are you interested in more education?: No Please select the resources that you would like help with: None Currently or been in a relationship where the following occur: No concerns reported THRIVE Score: 0 AUDIT C Alcohol Use Questionnaire (AUDIT-C) 1. How often do you have a drink containing alcohol?: Never Total Score: 0 PAULINO-7 AMB Questionnaire PAULINO-7 Date PAULINO - 7 assessed: 06/07/24 Feeling nervous, anxious, or on edge: 0 = Not at all Not being able to stop or control worryin = Not at all Worrying too much about different things: 0 = Not at all Trouble relaxin = Several days Being so restless that it is hard to sit still: 0 = Not at all Becoming easily annoyed or irritable: 1 = Several days Feeling afraid as if something awful might happen: 0 = Not at all Total PAULINO-7 score (0-4 normal; 5-9 mild; 10-14 moderate; 15-21 severe): 2 Source: Developed by Yadi Anna Kurt Kroenke and colleagues, with an educational brian from [employer]. ACT Questionnaire In the past 4 weeks, how much of the time did your asthma keep you from getting as much done at work, school or at home?: None of the time During the past 4 weeks, how often have you had shortness of breath?: 1-2 times a week During the past 4 weeks, how often did your asthma symptoms wake you up at night or earlier than usual in the morning?: Not at all During the past 4 weeks, how often have you had to use your rescue inhaler or nebulizer medication?: Not at all How would you rate your asthma control during the past 4 weeks?: Well controlled ACT Interpretation: Negative Score: 23 Review of Systems Const Denies body aches, Denies chills, Denies excessive sweating, Denies fatigue, Denies fever(s) and Denies headache(s) Eyes Denies blurry vision ENT Denies dysphagia, Denies vertigo, Denies dizziness, Denies headache(s), Denies hearing loss and Denies tinnitus Card Denies chest pain, Denies chest pain with activity, Denies syncope, Denies irregular heart rhythm and Denies dyspnea Resp Denies chest congestion, Denies cough, Denies hemoptysis, Denies dyspnea and Denies wheezing GI Denies abdominal pain, Denies melena, Denies hematochezia, Denies coffee ground emesis, Denies dysphagia, Denies diarrhea, Denies nausea and Denies vomiting Denies urinary frequency, Denies dysuria, Denies urinary hesitancy and Denies urinary urgency Musc Denies arthralgias, Denies limited range of motion, Denies muscle cramps and Denies muscle weakness Skin/Breast Denies rash and Denies skin ulcer Neuro Denies Abnormal speech present, Denies confusion, Denies vertigo, Denies dizziness, Denies syncope, Denies headache(s), Denies memory loss and Denies seizure-like activity Psych Denies anxiety, Denies confusion, Denies depression, Denies memory loss, Denies panic attacks and Denies paranoia Endo Denies excessive sweating, Denies fatigue, Denies flushing, Denies polydipsia and Denies polyuria Aller/Immun Denies wheezing Physical exam (Primary Care) Vital Signs: Last Vital Signs Pulse 87 06/07/24 15:16 BP 110/64 06/07/24 15:16 Pulse Ox 97 06/07/24 15:16 Oxygen Delivery Method Room Air 06/07/24 15:16 BMI result Body Mass Index 36.6 Tobacco/Smoking Status: Tobacco use Status Tobacco use date assessed 06/07/24 06/07/24 15:17 Patient Tobacco Use Status Never used Tobacco 06/07/24 15:36 e-Cigarette/Vaping Use Never Used 06/07/24 15:36 PHQ-9: PHQ-9 Score PHQ-9: Total score 8 06/07/24 15:55 Depression Screening Interpretation: Positive Thrive Assessment: Date of Thrive Assessment Date Thrive assessed 06/07/24 06/07/24 15:17 Currently or been in a relationship where the following occur: No concerns reported Const General: cooperative, comfortable, no acute distress, alert and awake; No confusion Orientation/consciousness: oriented to person, oriented to place, patient oriented x3 and No confusion HENMT Head: Yes normocephalic Ears: external ears normal and TM's normal bilaterally Face and sinus: No sinus tenderness Mouth: Normal oral and palatal mucosa present and tongue normal Teeth and gingiva: dentition normal and gingiva normal Throat: Yes posterior oropharynx normal, Yes tonsils normal and Yes uvula midline Eyes Conjunctivae: conjunctivae normal Sclerae: sclerae normal Pupils: Equal, round and reactive pupils present EOM: EOMs intact bilaterally Direct Ophthalmoscopy: No no photophobia Neck Neck: Yes no lymphadenopathy, No tender and Yes no JVD Thyroid: Thyroid normal Carotids: no bruits Chest Chest palpation & inspection: no tenderness Resp Effort & Inspection: normal respiratory effort, no audible wheezes, not labored and no stridor Auscultation: no crackles, no rales, no rhonchi and no wheezes Cardio Jugular venous distension: no JVD Rate: regular rate, not bradycardic and not tachycardic Rhythm: regular rhythm Bruits: no carotid bruits Peripheral pulses: Peripheral pulses 2+ throughout GI Inspection: Yes normal to inspection, No abdominal wall ecchymosis and No visible herniation Palpation (GI): Soft to palpation, nontender, no guarding, not rigid and No hepatosplenomegaly present Auscultation: normoactive bowel sounds General: Yes no CVA tenderness Back/Spine/Pelvis Back: no CVA tenderness and No back tenderness Cervical Spine: cervical ROM normal Thoracic/Lumbar Spine: thoracic and lumbar spine normal to inspection, straight leg raise negative bilaterally, No thoraco-lumbar ROM limited and No lumbar spinal tenderness Skin Lesions: no lesions Rashes: no rashes Wounds: no wounds Neuro General: oriented to person, oriented to place, patient oriented x3, CN's II-XI intact bilaterally and No confusion Cranial nerves: Yes Equal, round and reactive pupils present and Yes Normal accommodation reflex present Cognition (Neuro): normal cognition Speech: No Abnormal speech present Gait exam (Neuro): Normal gait present Motor exam (neuro): 5/5 motor strength present throughout Extrem Right upper extremity: full ROM; no cyanosis Left upper extremity: full ROM; no cyanosis Right lower extremity: no edema Left lower extremity: no edema Psych Appearance: grossly normal Mental Status: mental status grossly normal Affect: normal affect Attitude: cooperative Thought process: Normal thought process present Immunizations pneumoc 20-deonte conj-dip cr(PF) 0.5 mL IM syringe Performing Provider: Mundo Fleming PA-C [facility] Administered by: AMINA Swenson on 06/07/24 15:57 Dose Route Admin Location Dispensed Lot Number Expiration Date ND Manager Licensing 0.5 mL IM Left Deltoid 0.5 mL [id number] 07/10/25 5723-5603-60 [employer] VIS Given Date VIS Provided VIS Publication Date 06/07/24 Single Vaccine 21 Eligibility Eligibility Date Funding Source Not [facility] Eligible 06/07/24 Private Coding Level of Care Code Est Pt Prev Care 18-39y(78271) Diagnoses Adult general medical exam Z00.00 Other depression F32.89 Depression Type: other depression BRUNO (obstructive sleep apnea) G47.33 Moderate persistent asthma without complication J45.40 Asthma complication type: uncomplicated Asthma persistence: persistent Asthma severity: moderate Screening for diabetes mellitus (DM) Z13.1 Class 2 obesity E66.812 Additional Codes Asthma Control Questionnaire - ACT Interpretation: Negative ([id number]) Assessment & Plan Assessment & Plan (1) Adult general medical exam: Comment: Covid-19 IZ's Pfizer x 3. Tdap UTD. Code(s): Z00.00 - Encounter for general adult medical examination without abnormal findings Category: Medical Plan: As per HPI (2) Depression: Code(s): F32.A - Depression, unspecified Category: Medical Qualifiers: Depression Type: other depression Qualified Code(s): F32.89 - Other specified depressive episodes Plan: Patient continues on SSRI therapy which has been effective for her for quite awhile. She feels her depression and anxiety is fairly well controlled. She feels supported by family and friends. (3) BRUNO (obstructive sleep apnea): Code(s): G47.33 - Obstructive sleep apnea (adult) (pediatric) Category: Medical Plan: Patient uses a CPAP machine on a nightly basis with good effect. Continues to follow pulmonology here in [place]. (4) Asthma: Code(s): J45.909 - Unspecified asthma, uncomplicated Category: Medical Qualifiers: Asthma complication type: uncomplicated Asthma persistence: persistent Asthma severity: moderate Qualified Code(s): J45.40 - Moderate persistent asthma, uncomplicated Plan: Patient reports asthma has been fairly well controlled, still does have wheeze and some shortness of breath at times. Does use a maintenance inhaler on a daily basis and p.r.n. use of her Ventolin inhaler. 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 (5) Screening for diabetes mellitus (DM): Code(s): Z13.1 - Encounter for screening for diabetes mellitus Category: Medical Plan: As per HPI (6) Class 2 obesity: Code(s): E66.812 - Obesity, class 2 Category: Medical Plan: Patient does understand her BMI is over 35 and will work on being more physically active and adapting to better eating habits to reduce her weight. She admits that she emotionally eats and has been working on this. Orders: Orders Comprehensive [place]. Panel Fast 06/07/24 Z13.1 - Encounter for screening for diabetes mellitus Complete Blood Count no Diff 06/07/24 G47.33 - Obstructive sleep apnea (adult) (pediatric) Vitamin D 25-OH Total 06/07/24 R79.89 - Other specified abnormal findings of blood chemistry Pneumococcal 20 Immunization 06/07/24 G47.33 - Obstructive sleep apnea (adult) (pediatric), Z23 - Encounter for immunization
[2024-06-07 15:16] VITALS: BP 110/64; PULSE 87; O2SAT 97; BMI 36.6
== END 2024-06-07 16:54 | disposition home or self-care (01) ==
LOC: HO.HMCH 14:59
PROVIDERS: PCP Physician Assistant; Visit Provider Physician Assistant
DX: Z00.00 Encounter for general adult medical examination without abnormal findings (principal); F32.89 Other specified depressive episodes; Z68.36 Body mass index [BMI] 36.0-36.9, adult; E66.812 Obesity, class 2; G47.33 Obstructive sleep apnea (adult) (pediatric); J45.40 Moderate persistent asthma, uncomplicated; Z13.1 Encounter for screening for diabetes mellitus

== ENCOUNTER → 2024-06-07 14:58 | Outpatient (BNVA) | payer OTHER, SELFPAY | PROVIDERS: PCP Physician Assistant; Visit Provider Physician Assistant | DX: Z00.00 Encounter for general adult medical examination without abnormal findings (principal); F32.89 Other specified depressive episodes; G47.33 Obstructive sleep apnea (adult) (pediatric); J45.40 Moderate persistent asthma, uncomplicated; E66.812 Obesity, class 2; Z68.36 Body mass index [BMI] 36.0-36.9, adult; Z99.89 Dependence on other enabling machines and devices; Z23 Encounter for immunization | CPT/HCPCS: 90471; 90677; 96127; 96160 ==

== ENCOUNTER 2024-07-22 15:14 | Outpatient (REF) | payer OTHER, SELFPAY ==
[2024-07-22 16:38] LABS: Hematocrit 39.7 % (37.0-47.0); Hemoglobin 13.4 g/dl (12.0-16.0); Mean Corpuscular HGB Conc 33.8 g/dl (31.0-35.0); Mean Corpuscular Hemoglobin 27.1 pg (27.0-33.0); Mean Corpuscular Volume 80.4 fL (80.0-98.0); Mean Platelet Volume 9.2 fL (9.4-12.3); Platelet Count 446 X10*3/uL (160-400); Red Blood Count 4.94 X10*6/uL (4.20-5.50); White Blood Count 6.7 X10*3/uL (4.8-10.8)
[2024-07-22 17:08] LABS: Alanine Aminotransferase 24 U/L (0-31); Albumin Level 4.2 g/dL (3.5-5.0); Alkaline Phosphatase 76 U/L (39-117); Anion Gap 11 (12-20); Aspartate Amino Transferase 26 U/L (5-31); Bilirubin Total 0.6 mg/dL (0.0-1.0); Blood Urea Nitrogen 7 mg/dL (9-16); Calcium 9.2 mg/dL (8.4-10.2); Carbon Dioxide 23 mmol/L (22-29); Chloride 107 mmol/L (96-108); Estimated Glomerular Filt Rate > 60; Glucose Fasting 91 mg/dL (60-99); Potassium 3.8 mmol/L (3.3-5.1); Sodium 137 mmol/L (135-145); Total Protein 7.4 g/dL (6.5-8.0)
[2024-07-22 17:23] LABS: Vitamin D 25-OH Total 29.8 ng/mL (>30)
== END 2024-07-22 15:15 | disposition home or self-care (01) ==
LOC: HO.LAB 15:14
PROVIDERS: PCP Physician Assistant; Referring Provider Physician Assistant; Visit Provider Hospitalist
DX: Z13.1 Encounter for screening for diabetes mellitus (principal); G47.33 Obstructive sleep apnea (adult) (pediatric); R79.89 Other specified abnormal findings of blood chemistry
CPT/HCPCS: 36415; 80053; 82306; 85027

== ENCOUNTER 2024-07-22 15:14 | Outpatient (AMB) | payer OTHER, SELFPAY ==
[2024-07-22 15:40] VITALS: BP 102/62; PULSE 80; O2SAT 97; BMI 36.5
--- NOTE | 2024-07-22 15:40 | MHC.OFFVIS ---
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 She is having to use her maintenance inhaler which is Advair HFA twice a day in addition to that does take her rescue inhaler between 2 to 4 times a day. The patient complains of chest tightness and wheezing. Moderate severity. She did undergo pulmonary function studies sometime in July 2022 which demonstrated a moderate fixed obstruction suggesting uncontrolled asthma. The patient also had a decrease in her total lung capacity. Clinically the patient is feeling better from that time. Although she is still not at her baseline. She also states that she has had allergy testing back many years ago and she was allergic to everything. Will go ahead and recheck her allergies at this time. In addition to this the patient continues to have significant daytime drowsiness. There is family history of sleep apnea. She does have documented apneic episodes and snoring. Her [place] score is elevated 08/02. The patient did undergo home sleep study. Will demonstrated that she was tachycardic up to 140 beats per minute and also she was hypoxic below 88% for about 14 minutes. The patient however had a hard time with this study and could not get herself to sleep and therefore her apnea score she just mild. Therefore, the patient does have evidence of significant sleep apnea and significant nocturnal hypoxia. I will request an in-lab study in order to accurately measure her sleep apnea in order for her to start PAP therapy. 05/12/2023 the patient is here for a pulmonary follow-up visit. She continues to have daytime drowsiness. Her [place] score is still elevated to over 24. we did review her in-lab sleep study. The patient does have erzl-gf-arjylmsz sleep apnea. the patient really benefit from starting CPAP therapy. The patient is agreeable to this. Will go ahead and send a prescription to the local [employer] company. We did review her echocardiogram. No evidence of any pulmonary hypertension. This is reassuring. Still, will be very important for start CPAP therapy to minimize the risk of the development of pulmonary hypertension in the future. The patient also doing better on the Spiriva. Her asthma seems to be better controlled on this regimen. The patient did have allergy testing. Her IgE was elevated and she has severe allergies to cats birch trees oak trees and also has some allergies to dust mites. We did talk about considering allergy shots. Otherwise if her symptoms worsen a maximum respiratory therapy she can also consider biologics such as Xolair. Will have her start CPAP and have her follow-up in the next 2-3 months. 07/21/2023 the patient is here for a pulmonary follow-up visit. The patient overall has been doing fair. She had RSV few weeks ago and she is still recovering from it. She is still having coughing spells from it and because of that difficult time tolerating the CPAP at nighttime. Prior to that she was doing great on CPAP. And also the cough can affect her daytime activities. She has her albuterol and also her nebulizer that she uses as needed. Although she also use her maintenance therapies. She has just been sickly. When she had RSV she also took some antibiotics and some prednisone. Now she is back to her baseline therapy. However now with the cough is hard for her to tolerate the higher pressures on her CPAP. I did decrease pressures down to 14 cm. It is still those are too high she can always call and we can always hopefully decrease the pressure is further down. She continue with current respiratory therapy. I prescribed Tessalon Perles to help with her cough at this time. Respiratory aches exam is fairly normal. 01/19/2024 the patient is here for a pulmonary follow-up visit. Overall she is doing okay. He does bothering her. DIC in her apartment complex is not working yet and this is causing her to have difficulties with her breathing. Because of that she has not been able to use CPAP. Therefore she has minimal use for the last few weeks. She did use it over the wintertime very good in the therapy has been very affecting beneficial. Once they fixed the AC in her apartment she will be able to start using the CPAP again. She likes her mask and she has been getting supplies regularly which is reassuring. We did download the data. Her AHI is down to 1.4 when she does use the machine. Therefore we will make any changes at this time. She will continue with current supplies. She will continue with current respiratory medicines. Although she has been having more allergies. We did talk about considering Xolair as an option. The patient is agreeable this time. Will go ahead and request Xolair for the patient at this time. 07/22/2024 the patient is here for pulmonary follow-up visit. The patient overall has been doing well. Although recently she did have an asthma exacerbation. She did require prednisone. She is back to her baseline. She has been using her inhalers with good effect. Although she probably do better with a combination inhaler like Trelegy to try to provide her better adherence to therapy. She was supposed to start Xolair but she never did. At this point the patient seems to be doing good with just respiratory inhaler therapy in allergy avoidance and will hold off on the Xolair at this time. If her asthma and allergies worsened in the springtime then will consider it then. The patient has also been using her CPAP. She does use a fullface mask. CPAP therapy has been affecting beneficial and she does use it more than 4 hours a night. There was a time when she was sick that she could not use it but now she is back to using it regularly. [facility] Medical History (Updated 06/08/24 @ 07:32 by Mundo Fleming PA-C) Seasonal allergies COVID-19 Chronic allergic rhinitis Nocturnal hypoxia BRUNO (obstructive sleep apnea) Exercise-induced asthma Surgical History No pertinent past surgical history Family History Mother Splenic artery aneurysm Father No problems noted. 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 Cognitive needs: No Hearing needs: No Vision needs: No Review of Systems Const Denies daytime sleepiness, Reports difficulty sleeping, Denies fever(s) and Denies snoring Eyes Denies change in vision ENT Reports nasal congestion and Reports nasal discharge Card Denies chest pain Resp Reports cough, Denies snoring and Reports wheezing GI Reports no additional complaints Musc Denies myalgias Skin/Breast Denies rash Endo Denies flushing Jr/Lymph Denies lymphadenopathy Aller/Immun Reports wheezing Physical Exam Vital Signs: Last Vital Signs Pulse 80 07/22/24 15:40 BP 102/62 07/22/24 15:40 Pulse Ox 97 07/22/24 15:40 Oxygen Delivery Method Room Air 07/22/24 15:40 BMI result Body Mass Index 36.5 Const General: comfortable HEENT Head: Yes atraumatic Eyes General: appearance normal, both eyes and all related structures Neck Neck: Yes supple Chest Chest palpation & inspection: normal inspection of the chest Resp Effort & Inspection: normal respiratory effort Auscultation: no wheezes and diminished lung sounds Cardio Rate: regular rate Rhythm: regular rhythm Heart sounds: S1 normal heart sound present and S2 normal heart sound present GI Palpation (GI): Soft to palpation Skin General skin exam: no rashes or lesions noted Extrem General: Yes no clubbing, cyanosis or edema Assessment & Plan Assessment & Plan (1) BRUNO (obstructive sleep apnea): Code(s): G47.33 - Obstructive sleep apnea (adult) (pediatric) Category: Medical (2) Nocturnal hypoxia: Code(s): G47.34 - Idiopathic sleep related nonobstructive alveolar hypoventilation Category: Medical (3) Chronic allergic rhinitis: Code(s): J30.9 - Allergic rhinitis, unspecified Category: Medical (4) Asthma: Code(s): J45.909 - Unspecified asthma, uncomplicated Category: Medical Qualifiers: Asthma complication type: uncomplicated Asthma persistence: persistent Asthma severity: moderate Qualified Code(s): J45.40 - Moderate persistent asthma, uncomplicated Plan stop Advair HFA JEFF as needed stop Spiriva daily start Trelegy 200 continue APAP, decrease pressures 7-15 continue Tessalon pearls as needed for cough holding Xolair 300mg SC [id number] consider allergy shots F/U 8-12 months Medications: New bsduugnbwrp-lwbocqqjv-klsrghij 200-62.5-25 mcg (Trelegy Ellipta) 1 inh inhalation DAILY 60 ea 12RF 30 days prednisone PO daily; Take 6 tabs daily x 3 days, then 5 tabs x 3 days, then 4 tabs x 3 days, then 3 tabs x 3 days, then 2 tabs daily x 3 days, then 1 tab x 3 days to complete. 63 tabs 0RF 18 days Coding Level of Care Code Est Pt Level 4 (05117) Diagnoses BRUNO (obstructive sleep apnea) G47.33 Nocturnal hypoxia G47.34 Chronic allergic rhinitis J30.9 Moderate persistent asthma without complication J45.40 Asthma complication type: uncomplicated Asthma persistence: persistent Asthma severity: moderate Time Spent (min) 16
== END 2024-07-22 15:59 | disposition home or self-care (01) ==
PROVIDERS: PCP Physician Assistant; Visit Provider Hospitalist
DX: G47.33 Obstructive sleep apnea (adult) (pediatric) (principal); G47.34 Idiopathic sleep related nonobstructive alveolar hypoventilation; J30.9 Allergic rhinitis, unspecified; J45.40 Moderate persistent asthma, uncomplicated
CPT/HCPCS: 99214

== ENCOUNTER 2024-12-06 15:35 | Outpatient (AMB) | payer OTHER, SELFPAY ==
--- NOTE | 2024-12-06 15:36 | MHC.PC.OV ---
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 Accompanied by: Self / Same As Patient Allergies No Known Allergies Allergy (Verified 12/06/24 15:48) Medication List - Last Reconciled 12/06/24 by Mundo Fleming PA-C albuterol sulfate 90 mcg/actuation 2 puffs PO Q4-6H PRN albuterol sulfate 2.5 mg (3 mL) inhalation Q4-6H PRN benzonatate 200 mg PO BID PRN cetirizine (Zyrtec) 10 mg PO DAILY PRN cholecalciferol (vitamin D3) 25 mcg PO DAILY fluoxetine 40 mg PO DAILY 30 days fluticasone propion-salmeterol 115-21 mcg/actuation (Advair HFA) 2 puffs inhalation Q12H gmguerbodyl-orfrlwudu-uljofsmh 200-62.5-25 mcg (Trelegy Ellipta) 1 inh inhalation DAILY 30 days miscellaneous medical supply 1 ea miscellaneous DAILY montelukast 10 mg PO BEDTIME nebulizers As directed omalizumab 300 mg (2 mL) subcut Q4W tiotropium bromide 2.5 mcg/actuation (Spiriva Respimat) 2 puffs inhalation DAILY 30 days Tobacco use date assessed: 12/06/24 Dental Screening Dental Screen Date: 12/06/24 Did you have a dental visit in the last 12 months?: Yes Did you have a dental problem in the last 6 months where you did not have access to dental care?: No Was dental information given to patient?: Patient has dentist HPI f/u Asthma HPI Details Patient is a 24-year-old female here today for a follow-up visit. Patient has a past medical history significant for class 2 obesity, obstructive sleep apnea, depression and asthma. .. Asthma: Patient followed by [place] pul[facility]ology and continues on maintenance inhaler and p.r.n. use of her albuterol inhaler with decent affect. She also does have obstructive sleep apnea to which he uses a CPAP machine on a nightly basis with good effect. She does report her asthma does exacerbate during the springtime due to allergies. PLAN: Will supply patient with Singulair . Depression: Patient continues on SSRI therapy with good effect on her mood. She does admit to having eating disorders as a teenager to which she has been working on. She was seeing a mental health therapist in the past and feels he is very supported by friends and family. Class 2 obesity: Patient does understand her BMI is over 35 and will work on being more physically active and adapting to better eating habits to reduce her weight [facility] Medical History Seasonal allergies COVID-19 Chronic allergic rhinitis Nocturnal hypoxia BRUNO (obstructive sleep apnea) Exercise-induced asthma Surgical History No pertinent past surgical history Family History Mother Splenic artery aneurysm Father No problems noted. 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 1. Little interest or pleasure in doing things: several days 2. Feeling down, depressed, or hopeless: not at all 3. Trouble falling or staying asleep, or sleeping too much: nearly every day 4. Feeling tired or having little energy: more than half the days 5. Poor appetite or overeating: nearly every day 6. Feeling bad about yourself - or that you are a failure or have let yourself or your family down: not at all 7. Trouble concentrating on things, such as reading the newspaper or watching television: not at all 8. Moving or speaking so slowly that other people could have noticed. Or the opposite - being so fidgety or restless that you have been moving around a lot more than usual: not at all 9. Thoughts that you would be better off or of hurting yourself in some way: not at all Total score: 9 Depression Screening Interpretation: Positive Depression Screening Follow-up: Existing condition and In treatment Depression Screening Done: Yes 42986 - PHQ-9 Billing: Yes Source: Developed by Drs. Bernardo Charles, Yadi Sotelo, Chuck Vasquez and colleagues, with an educational brian from [employer]. Thrive Questionnaire Date Thrive assessed: 12/06/24 I am a: Patient What is your living situation today?: I have a steady place to live Within the past 12 months, did the food you bought not last and you didn't have the money to get more?: Never true Within the past 12 months, did you worry whether your food would run out before you got money to buy more?: Never true Do you have trouble paying for medicines?: No Do you have trouble getting transportation to medical appointments?: No Do you have trouble paying your heating and electricity bill?: No Do you have trouble taking care of your child, family member or friend?: No Do you have trouble with day-to-day activities such as bathing, preparing meals, shopping, managing finances, etc.?: No Are you currently unemployed and looking for a job?: No Are you interested in more education?: Yes Please select the resources that you would like help with: None Currently or been in a relationship where the following occur: No concerns reported THRIVE Score: 0 AUDIT C Alcohol Use Questionnaire (AUDIT-C) 1. How often do you have a drink containing alcohol?: Never 3. How often do you have six or more drinks on one occasion?: Never Total Score: 0 PAULINO-7 AMB Questionnaire PAULINO-7 Date PAULINO - 7 assessed: 12/06/24 Feeling nervous, anxious, or on edge: 1 = Several days Not being able to stop or control worryin = More than half the days Worrying too much about different things: 2 = More than half the days Trouble relaxin = Several days Being so restless that it is hard to sit still: 0 = Not at all Becoming easily annoyed or irritable: 2 = More than half the days Feeling afraid as if something awful might happen: 0 = Not at all Total PAULINO-7 score (0-4 normal; 5-9 mild; 10-14 moderate; 15-21 severe): 8 Source: Developed by Drs. Bernardo Charles, Yadi Sotelo, Chuck Vasquez and colleagues, with an educational brian from [employer]. PAULINO-7 Assessment Billing PAULINO-7 Assessment Tool: PAULINO-7 Assessment 78816 ACT Questionnaire In the past 4 weeks, how much of the time did your asthma keep you from getting as much done at work, school or at home?: None of the time During the past 4 weeks, how often have you had shortness of breath?: Not at all During the past 4 weeks, how often did your asthma symptoms wake you up at night or earlier than usual in the morning?: Not at all During the past 4 weeks, how often have you had to use your rescue inhaler or nebulizer medication?: Not at all How would you rate your asthma control during the past 4 weeks?: Completely controlled ACT Interpretation: Negative Score: 25 Review of Systems Const Denies headache(s) Eyes Denies loss of vision ENT Denies vertigo, Denies dizziness, Denies headache(s) and Denies sore throat Card Denies chest pain, Denies leg edema and Denies lightheadedness Resp Denies cough, Denies hemoptysis and Denies wheezing GI Denies abdominal pain, Denies melena, Denies constipation, Denies diarrhea and Denies vomiting Denies urinary frequency, Denies dysuria and Denies urinary urgency Musc Denies arthralgias, Denies joint swelling, Denies numbness and Denies tingling Neuro Denies Abnormal speech present, Denies behavioral changes, Denies vertigo, Denies dizziness, Denies headache(s), Denies loss of vision, Denies memory loss, Denies numbness and Denies tingling Psych Denies anxiety, Denies behavioral changes, Denies depression, Denies memory loss and Denies panic attacks Jr/Lymph Denies easy bleeding and Denies easy bruising Aller/Immun Denies wheezing Physical exam (Primary Care) Vital Signs: Last Vital Signs Temp 96.9 F 12/06/24 15:44 Pulse 106 H 12/06/24 15:44 BP 104/74 12/06/24 15:44 Pulse Ox 99 12/06/24 15:44 Oxygen Delivery Method Room Air 12/06/24 15:44 BMI result Body Mass Index 36.8 Tobacco/Smoking Status: Tobacco use Status Tobacco use date assessed 12/06/24 12/06/24 15:40 Patient Tobacco Use Status Never used Tobacco 12/06/24 15:37 e-Cigarette/Vaping Use Never Used 12/06/24 15:37 PHQ-9: PHQ-9 Score PHQ-9: Total score 9 12/06/24 15:40 Depression Screening Interpretation: Positive Depression Screening Follow-up: Existing condition and In treatment Thrive Assessment: Date of Thrive Assessment Date Thrive assessed 12/06/24 12/06/24 15:40 Currently or been in a relationship where the following occur: No concerns reported Const General: healthy appearing, no acute distress, alert and awake Nutritional Appearance: well nourished Orientation/consciousness: oriented to person, oriented to place and oriented to time HENMT Ears: TM's normal bilaterally General nose exam: Normal nasal mucous membranes and turbinates present Eyes Conjunctivae: conjunctivae normal Sclerae: sclerae normal Pupils: Equal, round and reactive pupils present Neck Neck: Yes no lymphadenopathy and Yes no JVD Thyroid: Thyroid normal Carotids: no bruits Resp Effort & Inspection: normal respiratory effort and not tachypneic Auscultation: no crackles, no rales, no rhonchi and no wheezes Cardio Rate: regular rate Rhythm: regular rhythm Heart sounds: no murmurs and normal S1 and S2 GI Palpation (GI): Soft to palpation, nontender, no hepatomegaly and no splenomegaly Auscultation: normal bowel sounds Skin General skin exam: no rashes or lesions noted and dry skin Neuro General: oriented to person, oriented to place and oriented to time Cranial nerves: Yes Equal, round and reactive pupils present Speech: No Abnormal speech present Gait exam (Neuro): Normal gait present Motor exam (neuro): no tremor noted Extrem Right upper extremity: full ROM Left upper extremity: full ROM Right lower extremity: full ROM; no edema Left lower extremity: full ROM; no edema Psych Mental Status: mental status grossly normal Speech and movement: Normal speech and movement present Affect: normal affect Attitude: cooperative Thought process: Normal thought process present Coding Level of Care Code Est Pt Level 4 (33985) Diagnoses Moderate persistent asthma without complication J45.40 Asthma severity: moderate Asthma persistence: persistent Asthma complication type: uncomplicated Other depression F32.89 Depression Type: other depression BRUNO (obstructive sleep apnea) G47.33 Class 2 obesity E66.812 Additional Codes PAULINO-7 Assessment Billing - PAULINO-7 Assessment Tool: PALUINO-7 Assessment 53421 ([id number]) PHQ-9 - 34007 - PHQ-9 Billing: Yes ([id number]) Asthma Control Questionnaire - ACT Interpretation: Negative ([id number]) Assessment & Plan Assessment & Plan (1) Asthma: Code(s): J45.909 - Unspecified asthma, uncomplicated Category: Medical Qualifiers: Asthma severity: moderate Asthma persistence: persistent Asthma complication type: uncomplicated Qualified Code(s): J45.40 - Moderate persistent asthma, uncomplicated Plan: Patient reports asthma has been fairly well controlled, still does have wheeze and some shortness of breath at times. Does use a maintenance inhaler on a daily basis and p.r.n. use of her Ventolin inhaler. She likely has a allergy component to her asthma and is interested in starting Xolair injections to which she is did not discussions with with a soaker hides. (2) Depression: Code(s): F32.A - Depression, unspecified Category: Medical Qualifiers: Depression Type: other depression Qualified Code(s): F32.89 - Other specified depressive episodes Plan: Patient continues on SSRI therapy which has been effective for her for quite awhile. She feels her depression and anxiety is fairly well controlled. She feels supported by family and friends. (3) BRUNO (obstructive sleep apnea): Code(s): G47.33 - Obstructive sleep apnea (adult) (pediatric) Category: Medical Plan: Patient uses a CPAP machine on a nightly basis with good effect. Continues to follow pulmonology here in [place]. (4) Class 2 obesity: Code(s): E66.812 - Obesity, class 2 Category: Medical Plan: Patient does understand her BMI is over 35 and will work on being more physically active and adapting to better eating habits to reduce her weight. She admits that she emotionally eats and has been working on this. Orders: Orders Vitamin D 25-OH Total Today R79.89 - Other specified abnormal findings of blood chemistry Complete Blood Count no Diff Today J45.40 - Moderate persistent asthma, uncomplicated Comprehensive [place]. Panel Fast Today Z13.1 - Encounter for screening for diabetes mellitus Medications: Changed From montelukast 10 mg PO BEDTIME 30 tabs 2RF J45.909 - Unspecified asthma, uncomplicated To montelukast 10 mg PO BEDTIME 90 days 90 tabs 1RF J45.909 - Unspecified asthma, uncomplicated
[2024-12-06 15:44] VITALS: BP 104/74; PULSE 106; TEMP 36.1; O2SAT 99; BMI 36.8
== END 2024-12-06 16:02 | disposition home or self-care (01) ==
LOC: HO.HMCH 15:36
PROVIDERS: PCP Physician Assistant; Visit Provider Physician Assistant
DX: J45.40 Moderate persistent asthma, uncomplicated (principal); E66.812 Obesity, class 2; Z68.36 Body mass index [BMI] 36.0-36.9, adult; F32.89 Other specified depressive episodes; G47.33 Obstructive sleep apnea (adult) (pediatric)

== ENCOUNTER → 2024-12-06 15:35 | Outpatient (BNVA) | payer OTHER, SELFPAY | PROVIDERS: PCP Physician Assistant; Visit Provider Physician Assistant | DX: J45.40 Moderate persistent asthma, uncomplicated (principal); F32.89 Other specified depressive episodes; G47.33 Obstructive sleep apnea (adult) (pediatric); E66.812 Obesity, class 2; Z68.36 Body mass index [BMI] 36.0-36.9, adult; Z99.89 Dependence on other enabling machines and devices | CPT/HCPCS: 96127; 96160 ==

== ENCOUNTER 2025-01-27 14:31 | Outpatient (REF) | payer OTHER, SELFPAY ==
[2025-01-27 15:14] LABS: MANUAL DIFF FLAG NO
[2025-01-27 15:22] LABS: Basophils Percent Auto 0.5 % (0-2); Eosinophils Absolute Auto 0.2 X10*3/uL (0.0-0.4); Eosinophils Percent Auto 2.8 % (0-4); Hematocrit 39.5 % (37.0-47.0); Hemoglobin 13.8 g/dl (12.0-16.0); Imm Gran Abs Auto 0.01 X10*3/uL (0.00-0.03); Imm Gran Pct Auto 0.1 % (0.0-0.4); Lymphocytes Percent Auto 26.9 % (20-40); Mean Corpuscular HGB Conc 34.9 g/dl (31.0-35.0); Mean Corpuscular Hemoglobin 27.7 pg (27.0-33.0); Mean Corpuscular Volume 79.3 fL (80.0-98.0); Mean Platelet Volume 8.9 fL (9.4-12.3); Monocytes Absolute Auto 0.7 X10*3/uL (0.1-1.2); Monocytes Percent Auto 9.7 % (2-11); Neutrophils Absolute Auto 4.5 x10*3/uL (2.0-8.3); Platelet Count 448 X10*3/uL (160-400); Red Blood Count 4.98 X10*6/uL (4.20-5.50); Red Cell Distribution Width 11.9 % (11.0-16.0); White Blood Count 7.4 X10*3/uL (4.8-10.8)
[2025-01-27 15:54] LABS: Alanine Aminotransferase 21 U/L (0-31); Albumin Level 4.8 g/dL (3.5-5.0); Alkaline Phosphatase 76 U/L (39-117); Anion Gap 12 (12-20); Aspartate Amino Transferase 25 U/L (5-31); Bilirubin Total 0.5 mg/dL (0.0-1.0); Blood Urea Nitrogen 6 mg/dL (9-16); Calcium 9.9 mg/dL (8.4-10.2); Carbon Dioxide 25 mmol/L (22-29); Chloride 105 mmol/L (96-108); Estimated Glomerular Filt Rate > 60; Glucose Fasting 90 mg/dL (60-99); Potassium 4.2 mmol/L (3.3-5.1); Sodium 138 mmol/L (135-145); Total Protein 7.6 g/dL (6.5-8.0)
[2025-01-27 16:05] LABS: Erythrocyte Sedimentation Rate 7 MM/HR (0-20)
[2025-01-27 16:08] LABS: Cortisol Random 12.9 ug/dL
[2025-01-27 16:15] LABS: Vitamin D 25-OH Total 34.7 ng/mL (>30)
[2025-01-30 21:53] LABS: Immunoglobulin E 140 kU/L (<OR=114)
== END 2025-01-27 14:32 | disposition home or self-care (01) ==
LOC: HO.LAB 14:31
PROVIDERS: PCP Physician Assistant; Visit Provider Hospitalist
DX: R79.89 Other specified abnormal findings of blood chemistry (principal); J45.40 Moderate persistent asthma, uncomplicated; Z13.1 Encounter for screening for diabetes mellitus
CPT/HCPCS: 36415; 80053; 82306; 82533; 82785; 85025; 85652

== ENCOUNTER 2025-01-27 14:31 | Outpatient (AMB) | payer OTHER, SELFPAY ==
[2025-01-27 14:33] VITALS: BP 122/78; PULSE 91; O2SAT 96; BMI 36.9
--- NOTE | 2025-01-27 14:33 | A.OFFVIS_ITS ---
Vital Signs 01/27/25 14:33 Height 5 ft 10 in Weight 257 lb BMI 36.9 BP 122/78 Blood Pressure Location Rt brachial Position Sitting Pulse 91 Pulse Source Pulse Oximeter Pulse Oximetry (%) 96 Oxygen Delivery Method Room Air Intake Visit Reasons: Asthma Allergies No Known Allergies Allergy (Verified 01/27/25 14:39) HPI Comments Details: The patient is a 24 year woman with a known history of asthma and allergic rhinitis who has been having worsening respiratory symptoms after having COVID. She is having to use her maintenance inhaler which is Advair HFA twice a day in addition to that does take her rescue inhaler between 2 to 4 times a day. The patient complains of chest tightness and wheezing. Moderate severity. She did undergo pulmonary function studies sometime in July 2022 which demonstrated a moderate fixed obstruction suggesting uncontrolled asthma. The patient also had a decrease in her total lung capacity. Clinically the patient is feeling better from that time. Although she is still not at her baseline. She also states that she has had allergy testing back many years ago and she was allergic to everything. Will go ahead and recheck her allergies at this time. In addition to this the patient continues to have significant daytime drowsiness. There is family history of sleep apnea. She does have documented apneic episodes and snoring. Her Egegik score is elevated 12/24. The patient did undergo home sleep study. Will demonstrated that she was tachycardic up to 140 beats per minute and also she was hypoxic below 88% for about 14 minutes. The patient however had a hard time with this study and could not get herself to sleep and therefore her apnea score she just mild. Therefore, the patient does have evidence of significant sleep apnea and significant nocturnal hypoxia. I will request an in-lab study in order to accurately measure her sleep apnea in order for her to start PAP therapy. 05/12/2023 the patient is here for a pulmonary follow-up visit. She continues to have daytime drowsiness. Her Egegik score is still elevated to over 24. we did review her in-lab sleep study. The patient does have [id number] sleep apnea. the patient really benefit from starting CPAP therapy. The patient is agreeable to this. Will go ahead and send a prescription to the local [email or web address] company. We did review her echocardiogram. No evidence of any pulmonary hypertension. This is reassuring. Still, will be very important for start CPAP therapy to minimize the risk of the development of pulmonary hypertension in the future. The patient also doing better on the Spiriva. Her asthma seems to be better controlled on this regimen. The patient did have allergy testing. Her IgE was elevated and she has severe allergies to cats birch trees oak trees and also has some allergies to dust mites. We did talk about considering allergy shots. Otherwise if her symptoms worsen a maximum respiratory therapy she can also consider biologics such as Xolair. Will have her start CPAP and have her follow-up in the next 2-3 months. 07/21/2023 the patient is here for a pulmonary follow-up visit. The patient overall has been doing fair. She had RSV few weeks ago and she is still recovering from it. She is still having coughing spells from it and because of that difficult time tolerating the CPAP at nighttime. Prior to that she was doing great on CPAP. And also the cough can affect her daytime activities. She has her albuterol and also her nebulizer that she uses as needed. Although she also use her maintenance therapies. She has just been sickly. When she had RSV she also took some antibiotics and some prednisone. Now she is back to her baseline therapy. However now with the cough is hard for her to tolerate the higher pressures on her CPAP. I did decrease pressures down to 14 cm. It is still those are too high she can always call and we can always hopefully decrease the pressure is further down. She continue with current respiratory therapy. I prescribed Tessalon Perles to help with her cough at this time. Respiratory aches exam is fairly normal. 01/19/2024 the patient is here for a pulmonary follow-up visit. Overall she is doing okay. He does bothering her. DIC in her apartment complex is not working yet and this is causing her to have difficulties with her breathing. Because of that she has not been able to use CPAP. Therefore she has minimal use for the last few weeks. She did use it over the wintertime very good in the therapy has been very affecting beneficial. Once they fixed the AC in her apartment she will be able to start using the CPAP again. She likes her mask and she has been getting supplies regularly which is reassuring. We did download the data. Her AHI is down to 1.4 when she does use the machine. Therefore we will make any changes at this time. She will continue with current supplies. She will continue with current respiratory medicines. Although she has been having more allergies. We did talk about considering Xolair as an option. The patient is agreeable this time. Will go ahead and request Xolair for the patient at this time. 07/22/2024 the patient is here for pulmonary follow-up visit. The patient overall has been doing well. Although recently she did have an asthma exacer bation. She did require prednisone. She is back to her baseline. She has been using her inhalers with good effect. Although she probably do better with a combination inhaler like Trelegy to try to provide her better adherence to therapy. She was supposed to start Xolair but she never did. At this point the patient seems to be doing good with just respiratory inhaler therapy in allergy avoidance and will hold off on the Xolair at this time. If her asthma and allergies worsened in the springtime then will consider it then. The patient has also been using her CPAP. She does use a fullface mask. CPAP therapy has been affecting beneficial and she does use it more than 4 hours a night. There was a time when she was sick that she could not use it but now she is back to using it regularly. 01/27/2025 the patient is here for pulmonary follow-up visit. Overall the patient is doing well. She continues uses CPAP every night. CPAP therapy has been affecting beneficial she does use it for more than 4 hours a night. From an asthma standpoint seems to be doing okay. She has been in the Trelegy 200. This is helping her. She continues on her allergy medicine. She does have underlying allergies and she was supposed to start Xolair. However, she was a little concerned about Xolair in was not sure if she wanted to go that route. We did look at her allergy testing. And will go ahead and order additional allergy levels. She does benefit from biologics because the use of prednisone if problematic specially with elevated blood sugars and her weight. Therefore, will go ahead and order blood work in look into Dupixent as a better alternative to the biologics. The patient is on maximum respiratory medication is still having breakthrough symptoms needing her rescue inhaler several times a week. The patient also been having issues with her weight. She has look into a weight loss program. Will go ahead and refer her to a dietitian. Although based on the fact that she does have significant sleep apnea she does qualify for GLP 1 inhibitors such as Zepbound. I will reach out to her primary care doctor to see if this is something that they can help her with if not she can be referred to a place that can provide her with that support. [facility] Medical History Seasonal allergies COVID-19 Chronic allergic rhinitis Nocturnal hypoxia BRUNO (obstructive sleep apnea) Exercise-induced asthma Surgical History No pertinent past surgical history Family History Mother Splenic artery aneurysm Father No problems noted. 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 Cognitive needs: No Hearing needs: No Vision needs: No Review of Systems Const Denies daytime sleepiness, Reports difficulty sleeping, Denies fever(s) and Denies snoring Eyes Denies change in vision ENT Reports nasal congestion and Reports nasal discharge Card Denies chest pain Resp Reports cough, Denies snoring and Reports wheezing GI Reports no additional complaints Musc Denies myalgias Skin/Breast Denies rash Endo Denies flushing Jr/Lymph Denies lymphadenopathy Aller/Immun Reports wheezing Physical Exam Vital Signs: Last Vital Signs Pulse 91 01/27/25 14:33 BP 122/78 01/27/25 14:33 Pulse Ox 96 01/27/25 14:33 Oxygen Delivery Method Room Air 01/27/25 14:33 BMI result Body Mass Index 36.9 Const General: comfortable HEENT Head: Yes atraumatic Eyes General: appearance normal, both eyes and all related structures Neck Neck: Yes supple Chest Chest palpation & inspection: normal inspection of the chest Resp Effort & Inspection: normal respiratory effort Auscultation: no wheezes and diminished lung sounds Cardio Rate: regular rate Rhythm: regular rhythm Heart sounds: S1 normal heart sound present and S2 normal heart sound present GI Palpation (GI): Soft to palpation Skin General skin exam: no rashes or lesions noted Extrem General: Yes no clubbing, cyanosis or edema Assessment & Plan Assessment & Plan (1) BRUNO (obstructive sleep apnea): Code(s): G47.33 - Obstructive sleep apnea (adult) (pediatric) Category: Medical (2) Nocturnal hypoxia: Code(s): G47.34 - Idiopathic sleep related nonobstructive alveolar hypoventilation Category: Medical (3) Chronic allergic rhinitis: Code(s): J30.9 - Allergic rhinitis, unspecified Category: Medical (4) Asthma: Code(s): J45.909 - Unspecified asthma, uncomplicated Category: Medical Qualifiers: Asthma complication type: uncomplicated Asthma persistence: persistent Asthma severity: moderate Qualified Code(s): J45.40 - Moderate persistent asthma, uncomplicated Plan Trelegy 200 continue APAP, decrease pressures 7-15 continue Tessalon pearls as needed for cough Did not use Xolair 300mg SC F3ketir Bloodwork, may be a good candidate for Dupixent Looking into medical Wt Loss. Will qualify for [facility] with dx of BRUNO consider allergy shots F/U 4-6 months Orders: Orders Complete Blood Count Auto Diff 01/27/25 J45.40 - Moderate persistent asthma, uncomplicated Immunoglobulin E 01/27/25 J45.40 - Moderate persistent asthma, uncomplicated Cortisol Random 01/27/25 J45.40 - Moderate persistent asthma, uncomplicated Erythrocyte Sedimentation Rate 01/27/25 J45.40 - Moderate persistent asthma, uncomplicated Coding Level of Care Code Est Pt Level 4 (47593) Diagnoses BRUNO (obstructive sleep apnea) G47.33 Nocturnal hypoxia G47.34 Chronic allergic rhinitis J30.9 Moderate persistent asthma without complication J45.40 Asthma complication type: uncomplicated Asthma persistence: persistent Asthma severity: moderate Time Spent (min) 16
--- OUTSIDE RECORDS SUMMARY | 2025-01-27 14:34 | XMS_ITS | Clinical Summary ---
Author Organization [facility] [address] it Address [address] [place] [address] Care Team Providers Care Legal Biller Name Role Phone Javed Solano MD Primary Care Provider [phone] Surgical History Surgery Date Site/Laterality Comments OTHER SURGICAL HISTORY PROCEDURE: DENIES PREVIOUS SURGERY Medical History Medical History Date Comments Sleep disturbance 04/07/2008 DX:Sleep distu rbance Depression 11/02/2013 DX:Depression Anorexia DX:Anorexia COPD (chronic obstructive pu lmonary disease) ([facility] V24, CMS/HCC V28) DX:COPD (chronic o bstructive pulmonary disease) ([facility]) Family History Medical History Relation Name Comments Colon cancer Maternal Grandmother Heart attack Maternal Grandmother Heart failure Maternal Grandmother Hypertension Maternal Grandmother Breast cancer Neg Hx Ovarian cancer Neg Hx Pancreatic cancer Neg Hx Prostate cancer Neg Hx Uterine cancer Neg Hx Relation Name Status Comments Brother Alive Father Alive Maternal Grandmother Mother Alive Sister Alive Social History Tobacco Use Types Packs/Day Years Used Date Smoking Tobacco: Never Smokeless Tobacco: Never Alcohol Use Standard Drinks/Week Comments No 0 (1 standard drink = 0.6 oz pur e alcohol) Comments Unknown Sex and Gender Information Value Date Recorded Sex Assigned at Not on file Legal Sex Female 10:18 AM EST Gender Identity Not on file Sexual Orientation Not on file Obstetrics History Last Filed Vital Signs Vital Sign Reading Time Taken Comments Blood Pressure 111/68 08/24/2023 3:03 PM EST Pulse 92 08/24/2023 3:03 PM EST Temperature - - Respiratory Rate - - Oxygen Saturation - - Inhaled Oxygen Concentration - - Weight 107 kg (235 lb 3.2 oz) 08/24/2023 3:03 PM EST Height 175.3 cm (5' 9 ) 08/24/2023 3:03 PM EST Body Mass Index 34.73 08/24/2023 3:03 PM EST Plan of Treatment Health Maintenance Due Date Last Done Comments DTaP,Tdap,and Td Vaccines (7 - Td or Tdap) 12/25/2020 12/25/2010, 10/04/2002, 12/27/1999, Additional history exists Depression Screening 03/08/2024 HIV Screening 03/08/2024 Hepatitis C Screening 03/08/2024 Social Influencers of Health Screening 03/08/2024 COVID-19 Vaccine ( season) 2024 Influenza Vaccine (Season Ended) 2025 08/08/2016, 07/19/2014, 07/18/2009, Additional history exists Cervical Cancer Screening: Pap Smear 08/24/2026 08/24/2023 HIB Vaccines Aged Out 04/03/1999 No longer eligi ble based on patient's age to complete this topic Hepatitis B Vaccines Completed 10/14/1999, 1998, 1998 MMR Vaccines Completed 10/04/2002, 10/14/1999 IPV Vaccines Completed 03/19/2004, 03/11, 04/03/1999, Additional history exists Varicella Vaccines Completed 12/25/2010, 10/14/1999 Hepatitis A Vaccines Completed 04/15/2013, 01/02/20 12 HPV Vaccines Completed 07/24/2015, 07/10, 04/15/2013 Meningococcal ACWY Vaccine Completed 07/24/2015, Meningococcal B Vaccine Aged Out No l onger eligible based on patient's age to complete this topic Pneumococcal Vaccine: Pediatrics (0 to 5 Years) and At-Risk Patients (6 to 64 Years) Aged Out No longer eligible based on patient's age to complete this topic RSV Immunization Patients Under 20 months Aged Out No longer eligible based on patient's age to complete this topic Procedures Procedure Name Priority Date/Time Associated Diagnosis Comments PAP SMEAR Routine 08/24/2023 from Last 3 Months or Most Recently Relevant to Health Maintenance Results * Pap smear (08/24/2023) 08/24/2023 Narrative HISTORICAL TESTING LAB RESULTING AGENCY - 09/01/2023 2:36 PM EST [id number] THINPREP PAP, IMAGED: NEGATIVE FOR SQUAMOUS INTRAEPITHELIAL LESION AND MALIGNANCY . CARTER OSBORNE(ASCP) (CASE ELECTRONICALLY SIGNED 09 01 2023) ADEQUACY: SATISFACTORY ENDOCERVICAL/TRANSFORMATION ZONE COMPONENT PRESENT. SOURCE: THINPREP PAP HPV IF ASCUS, CERVICAL, IMAGED CLINICAL INFORMATION: HPV IF DIAGNOSIS OF ASCUS. [Z12.4] us Joana Agosto MD LAB CYTOLOGY ORDERABLES Fin al Result HISTORICAL TESTING LAB RESULTING AGENCY from Last 3 Months or Most Recently Relevant to Health Maintenance Care Teams Legal Biller Relationship Specialty Start Date End Date Javed Solano MD [address] [place] [address] PCP - General Internal Medicine 12/05/20
== END 2025-01-27 15:02 | disposition home or self-care (01) ==
LOC: HO.HPS 14:32
PROVIDERS: PCP Physician Assistant; Visit Provider Hospitalist
DX: G47.33 Obstructive sleep apnea (adult) (pediatric) (principal); G47.34 Idiopathic sleep related nonobstructive alveolar hypoventilation; J30.9 Allergic rhinitis, unspecified; J45.40 Moderate persistent asthma, uncomplicated
CPT/HCPCS: 99214

== ENCOUNTER 2025-04-03 11:16 | Outpatient (AMB) | payer OTHER, SELFPAY ==
--- OUTSIDE RECORDS SUMMARY | 2025-04-03 12:40 | XMS_ITS | Clinical Summary ---
Author Organization [facility] Address [address] [place] [address] Care Team Providers Care Bill Cutter Name Role Phone Holly Chirinos PA-C Primary Care Provider Source Comments PLEASE NOTE, if this patient is a minor, it may be UNLAWFUL to discuss sensitive information that is contained in these records (such as FAMILY PLANNING, MENTAL HEALTH or SUBSTANCE ABUSE) with the minor patient's parent or other person without the patient's specific authorization.[facility] Allergies Active Allergy Reactions Criticality Noted Date Comments Pollen Extracts 05/01/2021 Medications FLUoxetine (PROZAC) 40 mg capsuleIndicati ons:Moderate episode of recurrent major depressive disorder ([facility]) TAKE 1 CAPSULE BY MOUTH EVERY DAY 30 Capsule 2 10/13/2022 Active Active Problems Problem Noted Date Diagnosed Date Moderate episode of recurren t major depressive disorder ([facility]) 05/01/2021 IUD (intrauterine device) in place 05/01/2021 Overview (05/01/2021): Placed 2019 @ [facility] Immunizations Immunization Administration Dates Next Due Flu, Preservative Free 05/01/2021 PFIZER COVID VACCINE, PURPLE CAP, 12+ 07/17/2021 TDAP 05/01/2021 Social History Tobacco Use Types Packs/Day Years Used Date Smoking Tobacco: Never Smokeless Tobacco: Never Alcohol Use Standard Drinks/Week Comments Never 0 (1 standard drink = 0.6 oz pur e alcohol) Social Connections Answer Date Recorded Connectedness 0 05/01/2021 Financial Resource Strain Answer Date R ecorded Financial Resource Strain 0 2020 Stress Answer Date Recorded Stress 0 05/01/2021 Physical Activity Answer Date Recorded Physical Activity 0 05/01/2021 Food Insecurity Answer Date Recorded Food 0 05/01/2021 Transportation Needs Answer Date Record ed Transportation 0 05/01/2021 Housing Stability Answer Date Recorded Housing 0 05/01/2021 Safety and Environment Answer Date Pastor rded Safety 0 05/01/2021 Utilities Answer Date Recorded Utilities 0 05/01/2021 Employment Answer Date Recorded Employment 0 05/01/2021 Comments No Sex and Gender Information Value Date Recorded Sex Assigned at Female 05/01/2021 10:32 AM PDT Legal Sex Female 6:45 AM PDT Gender Identity Female 05/01/2021 10:32 AM PDT Sexual Orientation Pansexual 05/01/2021 10 :32 AM PDT Last Filed Vital Signs Vital Sign Reading Time Taken Comments Blood Pressure 110/62 12/05/2021 9:43 AM EDT Pulse 62 12/05/2021 9:43 AM EDT Temperature 36.9 C (98.4 F) 12/05/2021 9:43 AM EDT Respiratory Rate 18 12/05/2021 9:43 AM EDT Oxygen Saturation 98% 06/12/2021 9:12 AM EDT Inhaled Oxygen Concentration - - Weight 111.1 kg (245 lb) 12/05/2021 9:43 AM EDT Height 173.5 cm (5' 8.31 ) 12/05/2021 9:43 AM ED T Body Mass Index 36.92 12/05/2021 9:43 AM EDT Plan of Treatment Health Maintenance Due Date Last Done Comments Anxiety Screening 1998 HPV Screening 1998 Hepatitis C Screening 1998 Pap + HPV 1998 Tobacco Screening 1998 HIV Screening 2013 Cervical Cancer Screening 2019 Pap Smear 2019 Depression Monitoring 07/31/2021 05/01/2021 Annual Wellness (Adult): Indicated (All Coverage) 05/01/2022 05/01/2021 Relationship Safety Screening/Counseling 05/01/2022 05/01/2021 [id number] ( season) 2024 07/17/2021, 12/07/2020, 11/16/2020 Alcohol and Drug Screen 08/10/2024 05/01/2021 Hypertension Screening (#1) 12/04/2024 Imm-Influenza (#1) 2025 05/01/2021, 1 , 07/19/2014, Additional history exists Imm-DTaP/Tdap/Td (8 - Td or Tdap) 05/01/2031 05/01/2021, 12/25/2010, 10/04/2002, Additional history exists Imm-Hepatitis B Completed 10/14/1999, 02/1999, 1998 Imm-HPV Completed 07/24/2015, 07/10, 04/15/2013 Cervical Ablation/Cold-Knife Conization Discontinued Cervical Cryotherapy Discontinued Colposcopy Discontinued Endometrial Biopsy Discontinued Excision/Leep Discontinued HPV Genotyping Discontinued Vaginal Pap Discontinued Vulvoscopy Discontinued Care Teams Bill Cutter Relationship Specialty Start Date End Date Holly Chirinos PA-C [address] [place] [address] PCP - General 01/17/22
--- OUTSIDE RECORDS SUMMARY | 2025-04-03 12:40 | XMS_ITS | Clinical Summary ---
Author Organization [facility] it Address [address] [place] [address] Care Team Providers Care Winding Machine Operator Name Role Phone Javed Solano MD Primary Care Provider [phone] Surgical History Surgery Date Site/Laterality Comments OTHER SURGICAL HISTORY PROCEDURE: DENIES PREVIOUS SURGERY Medical History Medical History Date Comments Sleep disturbance 04/07/2008 DX:Sleep distu rbance Depression 11/02/2013 DX:Depression Anorexia DX:Anorexia COPD (chronic obstructive pu lmonary disease) ([facility] V24, CMS/HCC V28) DX:COPD (chronic o bstructive pulmonary disease) ([facility]) Family History Medical History Relation Name Comments [...] 12/25/2020 12/25/2010, 10/04/2002, 12/27/1999, Additional history exists HIV Screening 03/08/2024 Hepatitis C Screening 03/08/2024 Social Influencers of Health Screening 03/08/2024 COVID-19 Vaccine ( season) 2024 Depression Screening 08/10/2024 Influenza Vaccine (#1) 2025 6, 07/19/2014, 07/18/2009, Additional history exists Cervical Cancer [...] 5 Years) and At-Risk Patients (6 to 49 Years) Aged Out No longer eligible based [...] RESULTING AGENCY - 09/01/2023 2:36 PM EST [id number] THINPREP PAP, IMAGED: NEGATIVE FOR SQUAMOUS INTRAEPITHELIAL [...] Recently Relevant to Health Maintenance Care Teams Winding Machine Operator Relationship Specialty Start Date End Date Javed Solano MD [address] [place] [address] PCP - General Internal Medicine 12/05/20
[2025-04-03 14:09] VITALS: BP 108/80; PULSE 96; O2SAT 98
--- NOTE | 2025-04-03 14:09 | A.OFFVIS_ITS ---
Vital Signs 04/03/25 14:09 Height 5 ft 10 in BP 108/80 Blood Pressure Location Lt brachial Position Sitting Pulse 96 Pulse Source Pulse Oximeter Pulse Oximetry (%) 98 Oxygen Delivery Method Room Air Intake Visit Reasons: Dupixent Teaching Marketing Assistant Required: No Allergies No Known Allergies Allergy (Verified 04/03/25 14:09) Medication List - Last Reconciled 04/03/25 by Mary Gonzalez LPN albuterol sulfate 2.5 mg (3 mL) inhalation Q4-6H PRN albuterol sulfate 90 mcg/actuation 2 puffs PO Q4-6H PRN benzonatate 200 mg PO BID PRN cetirizine (Zyrtec) 10 mg PO DAILY PRN cholecalciferol (vitamin D3) 25 mcg PO DAILY dupilumab (Dupixent) loading dose: 600mg SC x 1, then 300mg SC every 2 weeks 4 weeks fluoxetine 40 mg PO DAILY 30 days uocejdllgnd-nzepipuna-vnrwvjzr 200-62.5-25 mcg (Trelegy Ellipta) 1 inh inhalation DAILY 30 days miscellaneous medical supply 1 ea miscellaneous DAILY montelukast 10 mg PO BEDTIME 90 days nebulizers As directed HPI Comments Details: Jaimie is here for a Dupixent teach she was educated on hand washing, injection preparation, administration, and disposal. Jaimie was able to return demonstrate proper technique for hand washing, injection preparation, administration and disposal of needle and states she has no questions at this time. Medication Dupixent 300mg/2mL pre-filled pen injector (patient?s own meds) Loading dose of 600mg given by the patient in 2 SQ injections; injection #1 R abdomen;? injection #2 L abdomen Lot# [id number] expires 05/09/2027. Patient aware her next injection is in 15 days. Nurse visit only.? PFSH Medical History Seasonal allergies COVID-19 Chronic allergic rhinitis Nocturnal hypoxia BRUON (obstructive sleep apnea) Exercise-induced asthma Surgical History No pertinent past surgical history Family History Mother Splenic artery aneurysm Father No problems noted. 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 Cognitive needs: No Hearing needs: No Vision needs: No Physical Exam Vital Signs: Last Vital Signs Pulse 96 04/03/25 14:09 BP 108/80 04/03/25 14:09 Pulse Ox 98 04/03/25 14:09 Oxygen Delivery Method Room Air 04/03/25 14:09 Assessment & Plan Assessment & Plan (1) Asthma: Code(s): J45.909 - Unspecified asthma, uncomplicated Category: Medical Qualifiers: Asthma complication type: uncomplicated Asthma persistence: persistent Asthma severity: moderate Qualified Code(s): J45.40 - Moderate persistent asthma, uncomplicated Plan: DUpixent Coding Level of Care Code Established Pt Est Pt Level 1 (74458) Patient Type Established Diagnoses Moderate persistent asthma without complication J45.40 Asthma complication type: uncomplicated Asthma persistence: persistent Asthma severity: moderate Comment NURSE VISIT ONLY
== END 2025-04-03 14:12 | disposition home or self-care (01) ==
LOC: HO.HPS 11:16
PROVIDERS: PCP Physician Assistant; Visit Provider Hospitalist
DX: J45.40 Moderate persistent asthma, uncomplicated (principal)

== ENCOUNTER → 2025-04-03 11:16 | Outpatient (BNVA) | payer OTHER, SELFPAY | PROVIDERS: PCP Physician Assistant; Visit Provider Hospitalist | DX: J45.40 Moderate persistent asthma, uncomplicated (principal) | CPT/HCPCS: 99211 ==

== ENCOUNTER 2025-05-24 07:33 | Outpatient (AMB) | payer OTHER, SELFPAY ==
--- OUTSIDE RECORDS SUMMARY | 2025-05-24 07:36 | XMS_ITS | Clinical Summary ---
Author Organization [facility] it Address [address] [place] [address] Care Team Providers Care Clinical Rehabilitation Specialist Name Role Phone Javed Solano MD Primary Care Provider [phone] Surgical History Surgery Date Site/Laterality Comments OTHER SURGICAL HISTORY PROCEDURE: DENIES PREVIOUS SURGERY Medical History Medical History Date Comments Sleep disturbance 04/07/2008 DX:Sleep distu rbance Depression 11/02/2013 DX:Depression Anorexia DX:Anorexia COPD (chronic obstructive pu lmonary disease) ([facility] V24, CMS/HCC V28) DX:COPD (chronic o bstructive pulmonary disease) ([facility]) Family History Medical History Relation Name Comments [...] 03/08/2024 Social Influencers of Health Screening 03/08/2024 Depression Screening 08/10/2024 COVID-19 Vaccine ( season) 2025 Influenza Vaccine (#1) 2025 6, 07/19/2014, 07/18/2009, Additional history exists Cervical Cancer Screening: Pap Smear 08/24/2026 08/24/2023 RSV Immunization Adult Patients (1 - 1-dose 75+ series) 2073 HIB Vaccines Aged Out 04/03/1999 No longer [...] RESULTING AGENCY - 09/01/2023 2:36 PM EST [id number] THINPREP PAP, IMAGED: NEGATIVE FOR SQUAMOUS INTRAEPITHELIAL [...] Recently Relevant to Health Maintenance Care Teams Clinical Rehabilitation Specialist Relationship Specialty Start Date End Date Javed Solano MD [address] [place] [address] PCP - General Internal Medicine 12/05/20
--- OUTSIDE RECORDS SUMMARY | 2025-05-24 07:36 | XMS_ITS | Clinical Summary ---
Author Organization [facility] Address [address] [place] [address] Care Team Providers Care Student Nurse Name Role Phone Holly Chirinos PA-C Primary [...] ons:Moderate episode of recurrent major depressive disorder TAKE 1 CAPSULE BY MOUTH EVERY DAY 30 Capsule 2 10/13/2022 Active Active Problems Problem Noted Date Diagnosed Date Moderate episode of recurrent major depressive d isorder 05/01/2021 IUD (intrauterine device) in place 05/01/2021 Overview (05/01/2021): Placed 2019 @ [facility] Immunizations Immunization Administration Dates Next Due [...] 05/01/2022 05/01/2021 Relationship Safety Screening/Counseling 05/01/2022 05/01/2021 Alcohol and Drug Screen 08/10/2024 05/01/2021 Hypertension Screening (#1) 12/04/2024 [id number] ( season) 2025 07/17/2021, 12/07/2020, 11/16/2020 Imm-Influenza (#1) 2025 05/01/2021, 1 , 07/19/2014, Additional history exists Imm-DTaP/Tdap/Td (8 - Td or Tdap) 05/01/2031 05/01/2021, 12/25/2010, 10/04/2002, Additional history exists Imm-Hepatitis B Completed 10/14/1999, 02/1999, 1998 Imm-HPV Completed 07/24/2015, 07/10, 04/15/2013 Cervical Ablation/Cold-Knife Conization Discontinued Cervical Cryotherapy Discontinued Colposcopy Discontinued Endometrial Biopsy Discontinued Excision/Leep Discontinued HPV Genotyping Discontinued Vaginal Pap Discontinued Vulvoscopy Discontinued Care Teams Student Nurse Relationship Specialty Start Date End Date Holly Chirinos PA-C [address] [place] [address] PCP - General 01/17/22
[2025-05-24 07:59] VITALS: BMI 39.5
--- NOTE | 2025-05-24 07:59 | MHC.OFFVIS ---
Vital Signs 05/24/25 07:59 Height 5 ft 10 in Weight 275 lb BMI 39.5 Intake Visit Reasons: podiatry right foot Intake Note: Jaimie is a 24 year old female who presents today as a new patient for an evaluation of her left foot pain. She states the pain has been going on for 1 month since she had injured her self on 04/28/25 and is located on the hindfoot . She states she fractured the navicular bone and sprained the lateral aspect of her foot. Pt has history of previous sprain in her ankle. She has tried a walking boot, brace and OTC pain medication found relief for her pain. Allergies dupilumab (From [employer] Pen) Allergy (Verified 05/24/25 08:00) Hives Medication List - Last Reconciled 05/24/25 by Keli Childress DPM albuterol sulfate 2.5 mg (3 mL) inhalation Q4-6H PRN benzonatate 200 mg PO BID PRN cetirizine (Zyrtec) 10 mg PO DAILY PRN cholecalciferol (vitamin D3) 25 mcg PO DAILY dupilumab (Dupixent) loading dose: 600mg SC x 1, then 300mg SC every 2 weeks 4 weeks fluoxetine 40 mg PO DAILY 30 days fluticasone furoate-vilanterol 200-25 mcg/dose (Breo Ellipta) 1 inh inhalation DAILY 30 days yeyhdbmwkft-gnoopuwtf-qxecxduk 200-62.5-25 mcg (Trelegy Ellipta) 1 inh inhalation DAILY 30 days miscellaneous medical supply 1 ea miscellaneous DAILY montelukast 10 mg PO BEDTIME 90 days nebulizers As directed Ventolin HFA 90 mcg/actuation (albuterol sulfate) 2 puffs PO Q4-6H PRN NS HPI Comments Details: The patient is a 24-year-old female with a PMH as seen below presenting with a left foot and ankle injury sustained approximately one month ago. Patient states she went to an urgent care where she was diagnosed with a left ankle fracture and navicular fracture. The patient was provided with a CAMboot which she used for 3 weeks and was later transitioned to a brace. Patient states she was WBAT since the injury. The patient reports no significant pain currently, although there is tightness and discomfort with certain ROM. Patient denies any new pedal injuries. Patient states she is currently able to bear weight without any pain. She denies any other pedal concerns. [facility] Medical History Seasonal allergies COVID-19 Chronic allergic rhinitis Nocturnal hypoxia BRUNO (obstructive sleep apnea) Exercise-induced asthma Surgical History No pertinent past surgical history Family History Mother Splenic artery aneurysm Father No problems noted. 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 All systems reviewed & are unremarkable except as noted in HPI and below Physical Exam Vital Signs: BMI result Body Mass Index 39.5 Extrem Other: LLE Focused Physical Exam: Derm: Skin supple and turgor WNL. No ecchymosis or discoloration noted. No clinical signs of infection. No edema noted. Vasc: DP/PT pulses palpable. CFT < 3 secs. Temp gradient warm to warm. No varicosities noted. Pedal hair present. Neuro: Protective sensations grossly intact. MSK: No pain on palpation to the lateral aspect of the ankle. No pain on palpation to the midfoot in the area of the navicular. ROM of the ankle WNL except for with tightness and slight discomfort noted upon inversion and slightly limited plantarflexion. ROM of the forefoot, midfoot, and hindfoot WNL. Positive anterior drawer test. No pain along the lateral ankle ligaments. Nonantalgic gait unassisted. Results Reviewed Results Reviewed: Podiatry read of Right foot and ankle 3 views (obtained from [facility] on 04/30/25): Avulsion fracture noted to the distal tip of the fibula. Stress fracture noted to the dorsomedial aspect of the navicular. No acute dislocations noted. Joint spacing WNL. Assessment & Plan Assessment & Plan (1) Left ankle pain: Code(s): M25.572 - Pain in left ankle and joints of left foot Category: Medical Qualifiers: Chronicity: acute Qualified Code(s): M25.572 - Pain in left ankle and joints of left foot (2) Left foot pain: Code(s): M79.672 - Pain in left foot Category: Medical (3) Avulsion fracture of left ankle: Code(s): S82.892A - Other fracture of left lower leg, initial encounter for closed fracture Category: Medical Qualifiers: Encounter type: initial encounter Fracture type: closed Qualified Code(s): S82.892A - Other fracture of left lower leg, initial encounter for closed fracture (4) Stress fracture of navicular bone of left foot: Code(s): M84.375A - Stress fracture, left foot, initial encounter for fracture Category: Medical (5) Sprain of left ankle: Code(s): S93.402A - Sprain of unspecified ligament of left ankle, initial encounter Category: Medical Qualifiers: Encounter type: initial encounter Plan Patient was informed and verbally consented to the use of an ambient scribe for clinic note documentation during this visit. I discussed with the patient the nature of her left navicular and fibular avulsion fractures, emphasizing the importance of physical therapy to strengthen the ligaments and prevent future injuries. We reviewed the need to continue using the brace and the plan for a follow-up in six weeks. I also explained that if pain persists after physical therapy, an MRI may be necessary to further evaluate the ligaments. - Continue using the brace while wearing sneakers, avoid barefoot walking. - Patient may be WBAT to the LLE. - Initiate physical therapy to strengthen ligaments and prevent future injuries. Provided referral. - Continue RICE prn. - Continue Ibuprofen or Tylenol prn pain. - Consider MRI if pain persists after physical therapy to evaluate ligament status. RTC in 6 weeks for re-evaluation. Orders: Orders PT Evaluation and Treatment Today M25.572 - Pain in left ankle and joints of left foot, M79.672 - Pain in left foot, M84.375A - Stress fracture, left foot, initial encounter for fracture, S82.892A - Other fracture of left lower leg, initial encounter for closed fracture, S93.402A - Sprain of unspecified ligament of left ankle, initial encounter Coding Level of Care Code New Pt Level 4 (34311) Diagnoses Acute left ankle pain M25.572 Chronicity: acute Left foot pain M79.672 Closed avulsion fracture of left ankle, initial encounter S82.892A Encounter type: initial encounter Fracture type: closed Stress fracture of navicular bone of left foot M84.375A Sprain of left ankle S93.402A Encounter type: initial encounter Time Spent (min) 60
== END 2025-05-24 08:32 | disposition home or self-care (01) ==
PROVIDERS: PCP Physician Assistant; Visit Provider Student in an Organized Health Care Education/Training Program
DX: M25.572 Pain in left ankle and joints of left foot (principal); M79.672 Pain in left foot; S82.892A Other fracture of left lower leg, initial encounter for closed fracture; M84.375A Stress fracture, left foot, initial encounter for fracture; S93.402A Sprain of unspecified ligament of left ankle, initial encounter
CPT/HCPCS: 99205

== ENCOUNTER → 2025-05-24 07:33 | Outpatient (BNVA) | payer OTHER, SELFPAY | PROVIDERS: PCP Physician Assistant; Visit Provider Student in an Organized Health Care Education/Training Program | DX: M84.375A Stress fracture, left foot, initial encounter for fracture (principal); S93.402D Sprain of unspecified ligament of left ankle, subsequent encounter; M25.572 Pain in left ankle and joints of left foot; M79.672 Pain in left foot | CPT/HCPCS: 99202 ==

== ENCOUNTER 2025-07-10 15:37 | Outpatient (AMB) | payer OTHER, SELFPAY ==
--- NOTE | 2025-07-10 15:45 | MHC.OFFVIS ---
Vital Signs 07/10/25 15:47 Height 5 ft 10 in Weight 277 lb 12.519 oz BMI 39.9 BP 120/78 Blood Pressure Location Lt brachial Position Sitting Pulse 91 Pulse Source Pulse Oximeter Pulse Oximetry (%) 95 Oxygen Delivery Method Room Air Intake Visit Reasons: I had to cancel a previous appointment. Drawbridge Tender Required: No Accompanied by: Self / Same As Patient Allergies dupilumab (From [employer] Pen) Allergy (Verified 07/10/25 15:51) Hives HPI Comments Details: The patient is a 24 year woman with a known history of asthma and allergic rhinitis who has been having worsening respiratory symptoms after having COVID. She is having to use her maintenance inhaler which is Advair HFA twice a day in addition to that does take her rescue inhaler between 2 to 4 times a day. The patient complains of chest tightness and wheezing. Moderate severity. She did undergo pulmonary function studies sometime in July 2022 which demonstrated a moderate fixed obstruction suggesting uncontrolled asthma. The patient also had a decrease in her total lung capacity. Clinically the patient is feeling better from that time. Although she is still not at her baseline. She also states that she has had allergy testing back many years ago and she was allergic to everything. Will go ahead and recheck her allergies at this time. In addition to this the patient continues to have significant daytime drowsiness. There is family history of sleep apnea. She does have documented apneic episodes and snoring. Her [place] score is elevated 12/24. The patient did undergo home sleep study. Will demonstrated that she was tachycardic up to 140 beats per minute and also she was hypoxic below 88% for about 14 minutes. The patient however had a hard time with this study and could not get herself to sleep and therefore her apnea score she just mild. Therefore, the patient does have evidence of significant sleep apnea and significant nocturnal hypoxia. I will request an in-lab study in order to accurately measure her sleep apnea in order for her to start PAP therapy. 05/12/2023 the patient is here for a pulmonary follow-up visit. She continues to have daytime drowsiness. Her [place] score is still elevated to over 24. we did review her in-lab sleep study. The patient does have xjcx-ow-juwrafpy sleep apnea. the patient really benefit from starting CPAP therapy. The patient is agreeable to this. Will go ahead and send a prescription to the local [employer] company. We did review her echocardiogram. No evidence of any pulmonary hypertension. This is reassuring. Still, will be very important for start CPAP therapy to minimize the risk of the development of pulmonary hypertension in the future. The patient also doing better on the Spiriva. Her asthma seems to be better controlled on this regimen. The patient did have allergy testing. Her IgE was elevated and she has severe allergies to cats birch trees oak trees and also has some allergies to dust mites. We did talk about considering allergy shots. Otherwise if her symptoms worsen a maximum respiratory therapy she can also consider biologics such as Xolair. Will have her start CPAP and have her follow-up in the next 2-3 months. 07/21/2023 the patient is here for a pulmonary follow-up visit. The patient overall has been doing fair. She had RSV few weeks ago and she is still recovering from it. She is still having coughing spells from it and because of that difficult time tolerating the CPAP at nighttime. Prior to that she was doing great on CPAP. And also the cough can affect her daytime activities. She has her albuterol and also her nebulizer that she uses as needed. Although she also use her maintenance therapies. She has just been sickly. When she had RSV she also took some antibiotics and some prednisone. Now she is back to her baseline therapy. However now with the cough is hard for her to tolerate the higher pressures on her CPAP. I did decrease pressures down to 14 cm. It is still those are too high she can always call and we can always hopefully decrease the pressure is further down. She continue with current respiratory therapy. I prescribed Tessalon Perles to help with her cough at this time. Respiratory aches exam is fairly normal. 01/19/2024 the patient is here for a pulmonary follow-up visit. Overall she is doing okay. He does bothering her. DIC in her apartment complex is not working yet and this is causing her to have difficulties with her breathing. Because of that she has not been able to use CPAP. Therefore she has minimal use for the last few weeks. She did use it over the wintertime very good in the therapy has been very affecting beneficial. Once they fixed the AC in her apartment she will be able to start using the CPAP again. She likes her mask and she has been getting supplies regularly which is reassuring. We did download the data. Her AHI is down to 1.4 when she does use the machine. Therefore we will make any changes at this time. She will continue with current supplies. She will continue with current respiratory medicines. Although she has been having more allergies. We did talk about considering Xolair as an option. The patient is agreeable this time. Will go ahead and request Xolair for the patient at this time. 07/22/2024 the patient is here for pulmonary follow-up visit. The patient overall has been doing well. Although recently she did have an asthma exacerbation. She did require prednisone. She is back to her baseline. She has been using her inhalers with good effect. Although she probably do better with a combination inhaler like Trelegy to try to provide her better adherence to therapy. She was supposed to start Xolair but she never did. At this point the patient seems to be doing good with just respiratory inhaler therapy in allergy avoidance and will hold off on the Xolair at this time. If her asthma and allergies worsened in the springtime then will consider it then. The patient has also been using her CPAP. She does use a fullface mask. CPAP therapy has been affecting beneficial and she does use it more than 4 hours a night. There was a time when she was sick that she could not use it but now she is back to using it regularly. 01/27/2025 the patient is here for pulmonary follow-up visit. Overall the patient is doing well. She continues uses CPAP every night. CPAP therapy has been affecting beneficial she does use it for more than 4 hours a night. From an asthma standpoint seems to be doing okay. She has been in the Trelegy 200. This is helping her. She continues on her allergy medicine. She does have underlying allergies and she was supposed to start Xolair. However, she was a little concerned about Xolair in was not sure if she wanted to go that route. We did look at her allergy testing. And will go ahead and order additional allergy levels. She does benefit from biologics because the use of prednisone if problematic specially with elevated blood sugars and her weight. Therefore, will go ahead and order blood work in look into Dupixent as a better alternative to the biologics. The patient is on maximum respiratory medication is still having breakthrough symptoms needing her rescue inhaler several times a week. The patient also been having issues with her weight. She has look into a weight loss program. Will go ahead and refer her to a dietitian. Although based on the fact that she does have significant sleep apnea she does qualify for GLP 1 inhibitors such as Zepbound. I will reach out to her primary care doctor to see if this is something that they can help her with if not she can be referred to a place that can provide her with that support. 07/10/2025 the patient is here for pulmonary follow-up visit. Overall the patient has been doing well. The patient continues on her inhalers with good response. She was on Dupixent. However, the patient developed significant rash and had to stop it quickly. She is actually doing okay without it so therefore will going to monitor her at this time. The patient is also continue to use her CPAP in the CPAP therapy continues to be affecting beneficial. She does use it for more than 4 hours a night and she does get his supplies to original. Although she has not heard from [facility] about her supplies so I did give her the phone number to call. In the meantime she is interested in weight loss especially with the underlying sleep apnea. I did reach out to her primary care doctor to see if she can be started on a GLP 1 inhibitor further underlying sleep apnea and then at some point once she reaches her goal weight we can repeat her sleep study. the patient seems to do worse in the summertime so will have her come back sometime in February of 2026. If any issues arise prior to this she will call for an earlier assessment. [facility] Medical History (Updated 05/24/25 @ 08:44 by Keli Childress DPM) Sprain of left ankle Stress fracture of navicular bone of left foot Avulsion fracture of left ankle Left foot pain Left ankle pain Seasonal allergies COVID-19 Chronic allergic rhinitis Nocturnal hypoxia BRUNO (obstructive sleep apnea) Exercise-induced asthma Surgical History No pertinent past surgical history Family History Mother Splenic artery aneurysm Father No problems noted. 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 Cognitive needs: No Hearing needs: No Vision needs: No Review of Systems Const Denies daytime sleepiness, Reports difficulty sleeping, Denies fever(s) and Denies snoring Eyes Denies change in vision ENT Reports nasal congestion and Reports nasal discharge Card Denies chest pain Resp Reports cough, Denies snoring and Reports wheezing GI Reports no additional complaints Musc Denies myalgias Skin/Breast Denies rash Endo Denies flushing Jr/Lymph Denies lymphadenopathy Aller/Immun Reports wheezing Physical Exam Vital Signs: Last Vital Signs Pulse 91 07/10/25 15:47 BP 120/78 07/10/25 15:47 Pulse Ox 95 07/10/25 15:47 Oxygen Delivery Method Room Air 07/10/25 15:47 BMI result Body Mass Index 39.9 Const General: comfortable HEENT Head: Yes atraumatic Eyes General: appearance normal, both eyes and all related structures Neck Neck: Yes supple Chest Chest palpation & inspection: normal inspection of the chest Resp Effort & Inspection: normal respiratory effort Auscultation: no wheezes and diminished lung sounds Cardio Rate: regular rate Rhythm: regular rhythm Heart sounds: S1 normal heart sound present and S2 normal heart sound present GI Palpation (GI): Soft to palpation Skin General skin exam: no rashes or lesions noted Extrem General: Yes no clubbing, cyanosis or edema Office Procedures Flu Questionnaire Does the patient have a severe egg allergy?: No Does the patient have severe life threatening allergies?: No Does the patient have a fever or illness today?: No Has the patient ever had Guillain-Tohatchi Syndrome?: No Has the patient ever had any past reaction to a flu shot?: No Immunizations Fluarix [id number] (PF) 45 mcg (15 mcg x 3)/0.5 mL IM syringe Performing Provider: Efra Eddy MD Performing Location: [facility] Pulmonology Services Administered by: Lora Francisco LPN on 07/10/25 16:31 Dose Route Admin Location Dispensed Lot Number Expiration Date NDC Director Medical Safety 0.5 mL IM Left Deltoid 0.5 mL [id number] 02/06/26 00166-877-09 [employer] VIS Given Date VIS Provided VIS Publication Date 07/10/25 Single Vaccine 24 Eligibility Eligibility Date Funding Source Not [facility] Eligible 07/10/25 Private Assessment & Plan Assessment & Plan (1) BRUNO (obstructive sleep apnea): Code(s): G47.33 - Obstructive sleep apnea (adult) (pediatric) Category: Medical (2) Nocturnal hypoxia: Code(s): G47.34 - Idiopathic sleep related nonobstructive alveolar hypoventilation Category: Medical (3) Chronic allergic rhinitis: Code(s): J30.9 - Allergic rhinitis, unspecified Category: Medical (4) Asthma: Code(s): J45.909 - Unspecified asthma, uncomplicated Category: Medical Qualifiers: Asthma severity: moderate Asthma persistence: persistent Asthma complication type: uncomplicated Qualified Code(s): J45.40 - Moderate persistent asthma, uncomplicated Plan Breo daily continue APAP, decrease pressures 7-15 continue Tessalon pearls as needed for cough Stopped Dupixent due to Allergic reaction Looking into medical Wt Loss. Will qualify for GLP1 with dx of BRUNO consider allergy shots F/U 6-8 months Orders: Orders Influenza [id number] Immunization Today Z23 - Encounter for immunization Coding Level of Care Code Est Pt Level 4 (76790) Diagnoses BRUNO (obstructive sleep apnea) G47.33 Nocturnal hypoxia G47.34 Chronic allergic rhinitis J30.9 Moderate persistent asthma without complication J45.40 Asthma severity: moderate Asthma persistence: persistent Asthma complication type: uncomplicated Time Spent (min) 16
[2025-07-10 15:47] VITALS: BP 120/78; PULSE 91; O2SAT 95; BMI 39.9
--- OUTSIDE RECORDS SUMMARY | 2025-07-10 18:32 | XMS_ITS | Clinical Summary ---
Author Organization [facility] it Address [address] [place] [address] Care Team Providers Care Office Copy Selector Name Role Phone Javed Solano MD Primary Care Provider [phone] Surgical History Surgery Date Site/Laterality Comments OTHER SURGICAL HISTORY PROCEDURE: DENIES PREVIOUS SURGERY Medical History Medical History Date Comments Sleep disturbance 04/07/2008 DX:Sleep distu rbance Depression 11/02/2013 DX:Depression Anorexia DX:Anorexia COPD (chronic obstructive pu lmonary disease) ([facility] V24, CMS/HCC V28) DX:COPD (chronic o bstructive pulmonary disease) ([facility]) Family History Medical History [...] RESULTING AGENCY - 09/01/2023 2:36 PM EST [id number] THINPREP PAP, IMAGED: NEGATIVE FOR SQUAMOUS INTRAEPITHELIAL [...] Recently Relevant to Health Maintenance Care Teams Office Copy Selector Relationship Specialty Start Date End Date Javed Solano MD [address] [place] [address] PCP - General Internal Medicine 12/05/20
== END 2025-07-10 16:32 | disposition home or self-care (01) ==
LOC: HO.HPS 15:38
PROVIDERS: PCP Physician Assistant; Visit Provider Hospitalist
DX: G47.33 Obstructive sleep apnea (adult) (pediatric) (principal); G47.34 Idiopathic sleep related nonobstructive alveolar hypoventilation; J30.9 Allergic rhinitis, unspecified; J45.40 Moderate persistent asthma, uncomplicated; Z23 Encounter for immunization
CPT/HCPCS: 99214

== ENCOUNTER → 2025-07-10 15:37 | Outpatient (BNVA) | payer OTHER, SELFPAY | PROVIDERS: PCP Physician Assistant; Visit Provider Hospitalist | DX: G47.33 Obstructive sleep apnea (adult) (pediatric) (principal); Z99.89 Dependence on other enabling machines and devices; Z23 Encounter for immunization; G47.34 Idiopathic sleep related nonobstructive alveolar hypoventilation; J30.9 Allergic rhinitis, unspecified; J45.40 Moderate persistent asthma, uncomplicated; Z13.89 Encounter for screening for other disorder | CPT/HCPCS: 90471; 90656 ==